=== PATIENT | female | born 1960 | race Caucasian/White ===

== ENCOUNTER 2020-07-31 14:21 | Outpatient (CLI) | payer BC, SELFPAY ==
[2020-07-31 14:37] LABS: Hematocrit 38.8 % (37.0-47.0); Mean Corpuscular HGB Conc 33.5 g/dl (32-36); Mean Corpuscular Hemoglobin 30.3 pg (26-34); Mean Corpuscular Volume 90.4 fl (80-100); Mean Platelet Volume 9.5 fl (7.4-10.4); Platelet Count Result 249 k/mm3 (150-375); Red Blood Count 4.29 M/mm3 (4.2-5.4); Red Cell Distribution Width 12.6 % (11.5-14.5); White Blood Count 5.1 K/mm3 (4.5-10.0)
[2020-07-31 14:50] LABS: Anion Gap 6 mmol/L (8-16); Blood Urea Nitrogen 18 mg/dL (7-17); Calcium 9.1 mg/dL (8.4-10.2); Carbon Dioxide 30 mmol/L (22-30); Chloride 104 mmol/L (98-107); Cholesterol 203 mg/dL (0-200); Estimated Glomerular Filt Rate > 60; Glucose 70 mg/dL (65-105); HDL Direct 58 mg/dL; Sodium 140 mmol/L (137-145); Triglycerides 133 mg/dL (<150)
[2020-07-31 15:01] LABS: LDL Cholesterol Direct 116 mg/dL
== END 2020-07-31 14:22 | disposition home or self-care (01) ==
PROVIDERS: PCP Family Medicine; Visit Provider Nurse Practitioner Family
DX: R42 Dizziness and giddiness (principal); R01.1 Cardiac murmur, unspecified
CPT/HCPCS: 36415; 80048; 80061; 84443; 85027

== ENCOUNTER 2020-08-07 09:09 | Outpatient (CLI) | payer BC, SELFPAY ==
--- NOTE | ~2020-08-07 | US_ITS ---
EXAMINATION: US carotid duplex BI DATE: 08/07/2020 09:50 INDICATION: Dizziness and giddiness. TECHNIQUE: Grayscale, color Doppler, and pulsed Doppler images of the cervical carotid arteries were obtained. The degree of vessel stenosis is placed in one of the following categories: normal, <50%, 5 0-69%, >=70% but less than near-occlusion, near-occlusion, or total occlusion. Note that percent sten osis relative to normal distal artery lumen diameter is indirectly measured from velocity measurement s as described by Honorio, et al. Radiology 2003; 229:340-346. COMPARISON: Ultrasound 09/18/2011 FINDINGS: RIGHT: The right common carotid artery (CCA) peak systolic velocity (PSV) is 77 cm/s. The right internal car otid artery (ICA) PSV is 96 cm/s. The right ICA end-diastolic velocity (EDV) is 24 cm/s. The right IC A/CCA PSV ratio is 1.2. Grayscale and color Doppler images yield an estimate of <50% diameter reducti on from plaque in the ICA. There is antegrade flow in the right vertebral artery. LEFT: The left CCA PSV is 91 cm/s. The left ICA PSV is 85 cm/s. The left ICA EDV is 21 cm/s. The left ICA/C CA PSV ratio is 0.9. Grayscale and color Doppler images yield an estimate of <50% diameter reduction from plaque in the ICA. There is antegrade flow in the left vertebral artery. IMPRESSION: 1. <50% stenosis in the right internal carotid artery. 2. <50% stenosis in the left internal carotid artery. Reviewed, dictated and finalized at location A. MEDIC SUPERVISOR
== END 2020-08-07 09:10 | disposition home or self-care (01) ==
PROVIDERS: PCP Family Medicine; Visit Provider Nurse Practitioner Family
DX: R42 Dizziness and giddiness (principal); R01.1 Cardiac murmur, unspecified; I65.23 Occlusion and stenosis of bilateral carotid arteries
CPT/HCPCS: 93880

== ENCOUNTER 2020-08-21 17:50 | Outpatient (CLI) | payer BC, SELFPAY | END 2020-08-21 17:51 | disposition home or self-care (01) | LOC: ANHCOVIDVC 17:50 | PROVIDERS: PCP Family Medicine | DX: Z23 Encounter for immunization (principal) | CPT/HCPCS: 0001A; 91300 ==

== ENCOUNTER 2020-09-11 17:46 | Outpatient (CLI) | payer BC, SELFPAY | END 2020-09-11 17:47 | disposition home or self-care (01) | LOC: ANHCOVIDVC 17:46 | PROVIDERS: PCP Family Medicine | DX: Z23 Encounter for immunization (principal) | CPT/HCPCS: 0002A; 91300 ==

== ENCOUNTER 2023-02-19 15:33 | Emergency (ER) | payer BC, SELFPAY ==
--- NOTE | ~2023-02-19 | CT_ITS ---
EXAMINATION: CT abdomen pelvis w con INDICATION: Epigastric abdominal pain TECHNIQUE: Computed tomographic images of the abdomen and pelvis were obtained after the administrati on of 100 cc of Omnipaque 350 intravenous contrast. The dose-length product (DLP) was 288.90 mGy-cm. Automated exposure control and iterative reconstruction technique were employed. COMPARISON: 10/10/2011 FINDINGS: There are innumerable nodules of the visualized lung bases which measure up to 9 mm in the right lower lobe. The heart size is normal. The liver, gallbladder, and adrenal glands are normal. Th ere are multiple hypoattenuating masses of the spleen which measure up to 1.3 cm. There is a question able hypoattenuating mass in the tail of the pancreas. There is mild diffuse wall thickening of the s tomach, worst in the gastric antrum. The right kidney is unremarkable there are peripelvic cysts vers us mild hydronephrosis of the left kidney. There is 1.6 cm rim calcified aneurysm of the splenic nehal ry. No free intraperitoneal gas or evidence of bowel obstruction. The appendix is normal. IMPRESSION: 1. Findings consistent with gastritis. 2. Innumerable nodules of the visualized lung bases which could reflect infection/inflammation howeve r no concerning for metastatic disease. Follow-up CT in three months is recommended. 3. Possible mass in the tail of the pancreas. Follow-up nonemergent MRI without and with contrast is recommended. 4. Multiple hypoattenuating splenic lesions, indeterminate. These can be simultaneously evaluated by MRI. Reviewed, dictated and finalized at location F. IMPRESSION: 1. Findings consistent with gastritis. 2. Innumerable nodules of the visualized lung bases which could reflect infecti on/inflammation however no concerning for metastatic disease. Follow-up CT in t hree months is recommended. 3. Possible mass in the tail of the pancreas. Follow-up nonemergent MRI without and with contrast is recommended. 4. Multiple hypoattenuating splenic lesions, indeterminate. These can be simult aneously evaluated by MRI.
--- NOTE | ~2023-02-19 | XR_ITS ---
EXAMINATION: XR chest 2V DATE: 02/19/2023 17:51 INDICATION: Epigastric abdominal pain TECHNIQUE: PA and lateral views of the chest are obtained. COMPARISON: 10/10/2011 FINDINGS: There are subtle bilateral pulmonary nodules which measure up to 9 mm. No pleural effusion or pneumothorax. The cardiomediastinal silhouette is normal. There is moderate thoracic spondylosis. IMPRESSION: 1. Subtle pulmonary nodules which could be infectious/inflammatory versus metastases. Reviewed, dictated and finalized at location F. IMPRESSION: 1. Subtle pulmonary nodules which could be infectious/inflammatory versus metas tases.
[2023-02-19 15:55] VITALS: BP 156/76; PULSE 76; RESP 16; TEMP 37.1; O2SAT 99
[2023-02-19 17:03] LABS: Basophils Percent Auto 0.2 % (0.2-1.2); Eosinophils Absolute Auto 0.1 K/mm3 (0-0.3); Eosinophils Percent Auto 1.5 % (0-4.4); Hematocrit 38.8 % (37.0-47.0); Hemoglobin 12.9 g/dL (12.0-15.0); Immature Granulocyte Absolute 0.01 K/mm3 (0.00-0.031); Immature Granulocyte Percent A 0.2 % (0-0.5); Lymphocytes Absolute Auto 1.75 K/mm3 (0.9-3.2); Lymphocytes Percent Auto 36.8 % (18.3-44.2); Mean Corpuscular HGB Conc 33.2 g/dl (32-36); Mean Corpuscular Hemoglobin 29.9 pg (26-34); Mean Platelet Volume 9.9 fl (7.4-10.4); Monocytes Absolute Auto 0.4 K/mm3 (0.1-0.6); Monocytes Percent Auto 7.6 % (2.6-8.5); Neutrophils Absolute Auto 2.6 K/mm3 (1.3-6.7); Neutrophils Percent Auto 53.7 % (45.5-73.1); Platelet Count Result 151 k/mm3 (150-375); Red Blood Count 4.31 M/mm3 (4.2-5.4); Red Cell Distribution Width 12.4 % (11.5-14.5); White Blood Count 4.8 K/mm3 (4.5-10.0)
[2023-02-19 17:07] LABS: Appearance Urine Clear (Clear); Bacteria Urine None Seen /hpf; Bilirubin Urine Negative (Negative); Blood Urine Negative (Negative); Color Urine Yellow (Yellow); Glucose Urine UA Negative (Negative); Ketones Urine Negative (Negative); Leukocyte Esterase Ur Trace LEU/UL (Negative); Nitrate Urine Negative (Negative); Non Pathogenic Casts 0-2; Protein Urine Negative (Negative); RBC Urine 0-2 /hpf (0-2); Squamous Epithelial Cell Urine None seen /hpf (Few); WBC Urine 0-5 /hpf; pH Urine 7.5 (5.0-9.0)
[2023-02-19 17:08] LABS: Add Urine Microscopic? YES
--- NOTE | 2023-02-19 17:15 | ECG_ITS ---
Measurements Intervals [place] Rate: 62 P: 74 IA: 150 QRS: 42 QRSD: 97 T: 38 QT: 421 QTc: 430 Interpretive Statements SINUS RHYTHM NORMAL ECG NO PREVIOUS ECG AVAILABLE FOR COMPARISON Electronically Signed On 02-19-2023 19:43:06 CDT by Matt Saba D.O.
[2023-02-19 17:16] LABS: Alanine Aminotransferase 27 U/L (6-35); Albumin Level 4.3 g/dL (3.5-5.1); Alkaline Phosphatase 56 U/L (38-126); Anion Gap 5 mmol/L (8-16); Aspartate Amino Transferase 28 U/L (14-36); Bilirubin,Total 0.5 mg/dL (0.2-1.3); Blood Urea Nitrogen 13 mg/dL (7-17); Calcium 9.1 mg/dL (8.4-10.2); Carbon Dioxide 31 mmol/L (22-30); Chloride 103 mmol/L (98-107); Estimated CRCL calculation 82 ml/min; Estimated Glomerular Filt Rate > 60; Glucose 85 mg/dL (65-110); Lipase 85 U/L (23-300); Potassium 3.8 mmol/L (3.4-5.0); Sodium 139 mmol/L (137-145)
--- NOTE | 2023-02-19 17:16 | ED.ABDPAIN ---
HPI - Abdominal Pain General Chief Complaint: Abdominal Pain Stated Complaint: abdominal pain Time Seen by Provider: 02/19/23 17:01 History of Present Illness HPI narrative: 62-year-old female with a history of insulin-dependent diabetes, aortic valve stenosis, and hyperlipidemia reports for evaluation for epigastric abdominal pain for the past 1 to 2 weeks. Patient states the pain is a constant dull ache, but becomes worse when she wakes up in the morning and when she is hungry. She states the pain is improved after eating meals and then starts to hurt again later. She states that the pain gets worse, feels like someone is stabbing her in the epigastrium with a knife. She states she went to her primary care provider 2 days ago for evaluation of the pain. Her PCP ordered blood work and stated that it all looked fine . States she is scheduled in 5 days for an outpatient ultrasound of her gallbladder, as this was her PCPs concern. Her PCP also started her on 20 mg of omeprazole daily which the patient has been taking without improvement. The patient states she came to the ED today because the pain got worse. She states currently her pain is a 5/10. She denies chest pain or shortness of breath, cough or congestion, fever, nausea or vomiting, diarrhea, dysuria or hematuria, melena or hematochezia. Last bowel movement was today and normal. Only abdominal surgeries consist of C-sections approximately 30 years ago. States her blood sugars have been approximately 200s in the past 1 to 2 weeks and she has adjusted her sliding scale accordingly. Related Data Home Medications Medication Instructions Recorded Confirmed insulin glargine 100 unit/mL (3 21 unit subcut QAM 02/17/23 02/17/23 mL) subcutaneous pen (Lantus Solostar U-100 Insulin) insulin lispro 100 unit/mL 1 sliding scale dose subcut 02/17/23 02/17/23 subcutaneous pen USEASDIRECTD Allergies Allergy/AdvReac Type Severity Reaction Status Date / Time No Known Allergies Allergy Unknown Verified 02/17/23 12:52 Review of Systems Review of Systems: CONSTITUTIONAL: Denies fever, chills EYES: Denies visual changes, redness, or discharge. ENT: Denies rhinorrhea, congestion, sore throat, or otalgia. CARDIOVASCULAR: Denies chest pain, palpitations, or edema. RESPIRATORY: Denies cough or dyspnea. GASTROINTESTINAL: See HPI GENITOURINARY: Denies dysuria or hematuria. SKIN: Denies rash or itching. MUSCULOSKELETAL: Denies back pain, joint pain, or myalgia. NEUROLOGIC: Denies headache, numbness, dizziness, or weakness. PSYCHIATRIC: Denies anxiety or depression. [facility] Past Medical History Medical History BMI 22.0-22.9, adult Diabetic ketoacidosis without coma associated with type 1 diabetes mellitus Encounter for other screening for malignant neoplasm of breast Herpes zoster without complication Impacted cerumen of both ears Splenic artery aneurysm Toenail torn away Type 1 diabetes mellitus without complications Family History Family History Father Hypertension Family history of chronic obstructive pulmonary disease Family history of congestive heart failure Mother Hypertension Family history of diabetes mellitus in first degree relative Sibling Hypertension Other Diabetes mellitus Social History Social History Smoking status: Never smoker Second hand tobacco smoke exposure: Yes Alcohol intake: current Substance use: never Substance use type: does not use Living arrangements: alone Occupation/Education: occupation 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 Patient resting comfortably in exam bed. She is pleasant and c
[2023-02-19] MEDS: BELLADONNA ALK/PHENOB ELIX 10 ML, MAG HYDROX/ALUMINUM HYD/SIMETH 30 ML, LIDOCAINE HCL 2... PO (17:27)
[2023-02-19] MEDS: FAMOTIDINE 20 MG/2 ML VIAL IV PUSH (17:27)
[2023-02-19] MEDS: SODIUM CHLORIDE 0.9% IV 1,000 ML 999 ML IV CONT (17:27)
[2023-02-19 17:32] VITALS: BP 169/86; PULSE 69; RESP 18; O2SAT 100
[2023-02-19 17:43] LABS: Troponin I < 0.012 ng/mL (0.000-0.034)
[2023-02-19 19:05] VITALS: BP 159/89; PULSE 89; RESP 15; O2SAT 100
== END 2023-02-19 19:36 | disposition home or self-care (01) ==
PROVIDERS: Emergency Medicine; Emergency Provider Physician Assistant; PCP Family Medicine
DX: K29.70 Gastritis, unspecified, without bleeding (principal); E78.5 Hyperlipidemia, unspecified; E10.9 Type 1 diabetes mellitus without complications; I35.0 Nonrheumatic aortic (valve) stenosis; Z77.22 Contact with and (suspected) exposure to environmental tobacco smoke (acute) (chronic); Z79.4 Long term (current) use of insulin; R91.8 Other nonspecific abnormal finding of lung field; D73.89 Other diseases of spleen; R93.3 Abnormal findings on diagnostic imaging of other parts of digestive tract
CPT/HCPCS: 36415; 71046; 74177; 80053; 81001; 83690; 84484; 85025; 93005; 96361; 96374; 99284; A9270; J7030; Q9967

== ENCOUNTER 2023-02-24 07:40 | Outpatient (CLI) | payer BC, SELFPAY ==
--- NOTE | ~2023-02-24 | US_ITS ---
EXAMINATION: US abdomen complete DATE: 02/24/2023 08:19 INDICATION: Epigastric pain TECHNIQUE: Multiple grayscale and Doppler ultrasound images of the abdomen were obtained. COMPARISON: CT, 02/19/2023 FINDINGS: The head and body of the pancreas are normal. The pancreatic tail is obscured by bowel gas. The liver is normal with normal echogenicity and echotexture. No surface nodularity. Normal hepatope logan flow in the main portal vein. The gallbladder is normal with no abnormal wall thickening, pericho lecystic fluid or stones. The normal common bile duct measures 5 mm. There was no sonographic Vazquez sign. The visualized portions of the aorta and inferior vena cava are normal. The spleen measures 9.5 cm. Splenic lesions identified on CT are not well demonstrated by ultrasound. The right kidney measures 11.5 x 4.9 x 4.2 cm. The left kidney measures 9.2 x 5.7 x 5.6 cm. The kidn eys demonstrate normal parenchymal echogenicity. There is mild left hydronephrosis. IMPRESSION: 1. No sonographic correlate for the patient's symptoms. 2. Splenic lesions and suspected pancreatic lesion seen on CT not well demonstrated. 3. Mild left hydronephrosis. Reviewed, dictated and finalized at location B. IMPRESSION: 1. No sonographic correlate for the patient's symptoms. 2. Splenic lesions and suspected pancreatic lesion seen on CT not well demonstr ated. 3. Mild left hydronephrosis.
== END 2023-02-24 07:41 ==
LOC: GOSHIMG 07:41
PROVIDERS: PCP Family Medicine; Visit Provider Physician Assistant Medical
DX: R10.13 Epigastric pain (principal); N13.30 Unspecified hydronephrosis
CPT/HCPCS: 76700

== ENCOUNTER 2023-03-17 15:32 | Outpatient (CLI) | payer BC, SELFPAY ==
--- NOTE | ~2023-03-17 | MR_ITS ---
EXAMINATION: MR abdomen wo/w con DATE: 03/17/2023 16:55 INDICATION: Other diseases of spleen. Upper abdominal pain. TECHNIQUE: Magnetic resonance imaging (MRI) of the abdomen was performed without and with 12 mL Multi Celeste intravenous contrast. COMPARISON: CT abdomen and pelvis 02/19/2023, chest CT 10/10/11 FINDINGS: Again seen are numerous nodules in the lungs in a random distribution measuring up to 11 mm in right lower lobe. No pleural effusion. There are 2 lesions in the liver measuring up to 6 mm visualized on diffusion-weighted images. The gallbladder is normal. There are multiple lesions in the spleen measur ing up to 11 mm that demonstrate increased T2-weighted signal intensity. There is a 2.5 cm hypoenhanc ing mass in the tail of the pancreas. 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 Gastric varices are n oted. The adrenal glands and right kidney are normal. There is mild left hydronephrosis. There is a 1 5 mm saccular aneurysm of splenic artery. IMPRESSION: 1. 2.5 cm mass in the tail of the pancreas, consistent with primary adenocarcinoma. Chronic pancreati tis could have the same appearance, but is less likely. 2. Pulmonary nodules measuring up to 11 mm, consistent with metastatic disease. Consider chest CT. 3. Two small liver lesions, which may be benign or malignant. 4. Splenic lesions, which may be granulomatous disease, infarcts, or metastatic disease. 5. Mild left hydronephrosis. Reviewed, dictated and finalized at location A. IMPRESSION: 1. 2.5 cm mass in the tail of the pancreas, consistent with primary adenocarcin bakari. Chronic pancreatitis could have the same appearance, but is less likely. 2. Pulmonary nodules measuring up to 11 mm, consistent with metastatic disease. Consider chest CT. 3. Two small liver lesions, which may be benign or malignant. 4. Splenic lesions, which may be granulomatous disease, infarcts, or metastatic disease. 5. Mild left hydronephrosis.
== END 2023-03-17 15:33 | disposition home or self-care (01) ==
PROVIDERS: PCP Family Medicine; Visit Provider Physician Assistant Medical
DX: D73.89 Other diseases of spleen (principal); K86.89 Other specified diseases of pancreas; N13.30 Unspecified hydronephrosis; R91.8 Other nonspecific abnormal finding of lung field
CPT/HCPCS: 74183; A9577

== ENCOUNTER 2023-03-19 08:40 | Outpatient (CLI) | payer BC, SELFPAY ==
--- NOTE | ~2023-03-19 | CT_ITS ---
EXAMINATION:CT diagnostic chest w con DATE: 03/19/2023 09:23 INDICATION: Lung nodule. Chest pain. TECHNIQUE: Computed tomography (CT) of the chest was performed with 75 mL Omnipaque 350 intravenous c ontrast. Automated exposure control and iterative reconstruction technique were employed. The dose-le ngth product (DLP) was 135.47 mGy-cm. COMPARISON: Chest CT 10/10/2011, CT abdomen and pelvis 02/19/2023. FINDINGS: There are greater than 50 scattered nodules in the lungs in a random distribution. Some of the nodules are cavitary. The largest nodule measures 11 mm in right lower lobe. No pleural effusion. The heart size is normal. There is a trace pericardial effusion. There are no pathologically enlarge d lymph nodes. There is a 1.6 cm saccular aneurysm of splenic artery. There are multiple hypodense sp lenic lesions measuring up to 12 mm. There is a 2.5 cm hypodense mass in the tail of the pancreas. 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 There is severe thoracic spondylosis. There is a hemangioma in T10 vertebral body. IMPRESSION: 1. Greater than 50 scattered pulmonary nodules measuring up to 11 mm, stable in size from 02/19/2023, consistent with metastatic disease. CT-guided biopsy of a lung nodule is recommended. 2. 2.5 cm hypodense mass in the tail of the pancreas, consistent with primary adenocarcinoma. 3. Stable splenic lesions, which may be infarcts or less likely granulomatous disease or metastatic d isease. Reviewed, dictated and finalized at location A. IMPRESSION: 1. Greater than 50 scattered pulmonary nodules measuring up to 11 mm, stable in size from 02/19/2023, consistent with metastatic disease. CT-guided biopsy of a lung nodule is recommended. 2. 2.5 cm hypodense mass in the tail of the pancreas, consistent with primary a denocarcinoma. 3. Stable splenic lesions, which may be infarcts or less likely granulomatous d isease or metastatic disease.
== END 2023-03-19 08:41 | disposition home or self-care (01) ==
PROVIDERS: PCP Family Medicine; Visit Provider Physician Assistant Medical
DX: R91.8 Other nonspecific abnormal finding of lung field (principal); K86.89 Other specified diseases of pancreas
CPT/HCPCS: 71260; Q9967

== ENCOUNTER 2023-03-26 05:16 | Outpatient (CLI) | payer BC, SELFPAY ==
[2023-03-19 13:03] VITALS: BMI 24.0
--- NOTE | 2023-03-19 13:04 | PC.NURSE ---
Pre Radiology instructions Report to the outpatient [facility] on date 03/26/23 at time 0900 for procedure Time: 1100. YOU MAY BE MONITORED AT HOSPITAL FOR UP TO 4 HOURS AFTER YOUR PROCEDURE. A visitor will be allowed to accompany the patient into the hospital. You and your visitor will be asked to self-screen and do not enter if you have any COVID symptoms. A mask is OPTIONAL within the hospital. Patients are to have no food or drink 6 hours prior to procedure time Driving will be restricted after the procedure, you must have a person to drive you home. Labs will be drawn in preop area and once reviewed, you will be taken to radiology area for procedure. When the procedure is completed, you will be taken to outpatient where you will be monitored for several hours. You may have one visitor in this area. Other than holding anti-coagulants, patient may take other medication(s) as scheduled. Prior to your appointment date patients are instructed to hold anti-coagulants after discussing with ordering provider to stop. If unable to discontinue anti-coagulants please notify radiologist. ? No aspirin or warfarin (Coumadin) for 7 days prior to the procedure. ? No clopidogrel (Plavix), ticagrelor (Brilinta), prasugrel (Effient) or dabigatran (Pradaxa) for 5 days prior to the procedure. ? No rivaroxaban (Xarelto), apixaban (Eliquis), dipyridamole (Aggrenox or Persantine) or cilostazol (Pletal) for 2 days prior to the procedure. Medications to discontinue per physician: ASPIRIN Date to take last dose: 03/19/23 Please leave all valuables, including medications, at home the day of procedure. The hospital will not accept responsibility for valuables. Wear comfortable, loose fitting clothing.? Follow any additional instructions given to you from ordering provider. Telephone instructions given to JORDYN DREW and asked if any additional questions and then verbalized understanding. Patient advised to call scheduling provider office or registration scheduling [phone] if any additional questions.
[2023-03-26] VITALS (10 sets, daily range): BP systolic 148–172; BP diastolic 65–82; PULSE 62–80; RESP 14–18; TEMP 36.3; O2SAT 99–100
--- NOTE | ~2023-03-26 | CT_ITS ---
EXAMINATION: CT biopsy lung w/imaging DATE: 03/26/2023 12:34 INDICATION: Multiple bilateral pulmonary nodules suspicious for metastatic disease. TECHNIQUE: The procedure including the risks and benefits was discussed with the patient. Risks discu ssed included infection, approximately 1/20 risk of symptomatic hemorrhage beyond mild hemoptysis, ap proximately 1/3 risk of pneumothorax, and approximately 1/10 risk of pneumothorax severe enough to wa rrant chest tube placement. The patient understood the risks and agreed to proceed. The patient was p laced prone. The skin overlying the posterior inferior right hemithorax was prepped and draped in st erile fashion. Anesthetic was administered with 1% lidocaine subcutaneously. A 19 gauge outer needl e was advanced under CT guidance to the lesion of interest. A 20 gauge core biopsy needle was then us ed to obtain 6 core biopsy specimens. The needle was removed and the entry site was cleaned and dress ed. There were no immediate complications. The dose-length product was 240.24 mGy-cm. FINDINGS: CT images demonstrate the outer needle tip adjacent to a 12 x 10 mm centrally cavitary nodu le at the basilar right lower lobe. There are multiple additional small solid and central cavitary no dules throughout the visualized bilateral mid to lower lungs. IMPRESSION: 1. Successful CT-guided biopsy of one of multiple scattered bilateral cavitary pulmonary nodules loca darrel in the right lower lobe. Reviewed, dictated and finalized at location A. IMPRESSION: 1. Successful CT-guided biopsy of one of multiple scattered bilateral cavitary pulmonary nodules located in the right lower lobe.
--- NOTE | ~2023-03-26 | XR_ITS ---
EXAMINATION: XR chest 1V portable DATE: 03/26/2023 15:38 INDICATION: Right lung nodule status post percutaneous biopsy. TECHNIQUE: A single frontal view of the chest was obtained. COMPARISON: Chest single view 03/26/2023 at 1:24 PM FINDINGS: There are scattered pulmonary nodules in the lungs. No pleural effusion or pneumothorax. Th e heart size is normal. IMPRESSION: 1. Pulmonary nodules, consistent with metastatic disease. Reviewed, dictated and finalized at location E.
--- NOTE | ~2023-03-26 | XR_ITS ---
EXAMINATION: XR chest 1V DATE: 03/26/2023 12:32 INDICATION: Status post percutaneous right lower lobe lung biopsy TECHNIQUE: frontal view of the chest was obtained. COMPARISON: Chest radiograph dated 02/19/2023 FINDINGS: Very small right apical pneumothorax. Again seen are a few subtle small nodular opacities in the bila teral lower lung suspicious for metastatic disease. No pleural effusion or left-sided pneumothorax. T he cardiomediastinal silhouette is normal. 1.8 cm rim calcified splenic artery aneurysm at the left u pper quadrant. IMPRESSION: 1. Very small right pneumothorax post percutaneous right lung biopsy. 2. Multiple small pulmonary nodules in the bilateral lower lungs suspicious for metastatic disease. Reviewed, dictated and finalized at location A.
--- NOTE | ~2023-03-26 | XR_ITS ---
Portable chest x-ray Comparison: 03/26/2023 at 12:30 PM Clinical History: Status post biopsy Findings: There are probable small subtle pulmonary nodules, consistent with metastatic disease. No pneumothorax. Cardiomediastinal silhouette is stable. Bones and soft tissues are unremarkable. Impression: Probable small subtle pulmonary nodules, consistent with metastatic disease. Please see recent CT tonya ed 03/19/2023 for further details. No pneumothorax. Reviewed, dictated and finalized at location M. Impression: Probable small subtle pulmonary nodules, consistent with metastatic disease. Pl ease see recent CT dated 03/19/2023 for further details. No pneumothorax.
[2023-03-26 10:04] LABS: Mean Platelet Volume 10.1 fl (7.4-10.4); Platelet Count Result 184 k/mm3 (150-375)
[2023-03-26 10:14] LABS: Prothrombin Time 13.5 Seconds (11.1-14.7)
--- NOTE | 2023-03-26 16:00 | SUR.PHASEII ---
PER DR EVANS PATIENT IS GOOD TO DISCHARGE
== END 2023-03-26 16:27 | disposition home or self-care (01) ==
PROVIDERS: PCP Family Medicine; Referring Provider Physician Assistant Medical; Visit Provider Radiology Diagnostic Radiology
PROC: BB24ZZZ Computerized Tomography (CT Scan) of Bilateral Lungs (ICD-10-PCS; CPT 32408; principal; 2023-03-26 11:00)
DX: R91.8 Other nonspecific abnormal finding of lung field (principal)
CPT/HCPCS: 32408; 36415; 71045; 85049; 85610; 88305; 88342

== ENCOUNTER 2023-04-08 15:47 | Outpatient (CLI) | payer BC, SELFPAY ==
[2023-04-08 15:58] LABS: Basophils Percent Auto 0.5 % (0.2-1.2); Eosinophils Absolute Auto 0.2 K/mm3 (0-0.3); Eosinophils Percent Auto 3.5 % (0-4.4); Hematocrit 36.3 % (37.0-47.0); Hemoglobin 12.3 g/dL (12.0-15.0); Immature Granulocyte Absolute 0.02 K/mm3 (0.00-0.031); Immature Granulocyte Percent A 0.3 % (0-0.5); Lymphocytes Absolute Auto 1.07 K/mm3 (0.9-3.2); Lymphocytes Percent Auto 18.5 % (18.3-44.2); Mean Corpuscular HGB Conc 33.9 g/dl (32-36); Mean Corpuscular Hemoglobin 29.8 pg (26-34); Mean Corpuscular Volume 87.9 fl (80-100); Mean Platelet Volume 9.3 fl (7.4-10.4); Monocytes Absolute Auto 0.5 K/mm3 (0.1-0.6); Monocytes Percent Auto 7.9 % (2.6-8.5); Neutrophils Percent Auto 69.3 % (45.5-73.1); Platelet Count Result 193 k/mm3 (150-375); Red Blood Count 4.13 M/mm3 (4.2-5.4); Red Cell Distribution Width 12.5 % (11.5-14.5); White Blood Count 5.8 K/mm3 (4.5-10.0)
[2023-04-08 16:34] LABS: Alanine Aminotransferase 66 U/L (6-35); Albumin Level 4.1 g/dL (3.5-5.1); Alkaline Phosphatase 57 U/L (38-126); Anion Gap 5 mmol/L (8-16); Aspartate Amino Transferase 52 U/L (14-36); Bilirubin,Total 0.5 mg/dL (0.2-1.3); Blood Urea Nitrogen 14 mg/dL (7-17); Calcium 9.1 mg/dL (8.4-10.2); Carbon Dioxide 31 mmol/L (22-30); Chloride 98 mmol/L (98-107); Estimated Glomerular Filt Rate > 60; Glucose 122 mg/dL (65-110); Potassium 3.7 mmol/L (3.4-5.0); Sodium 134 mmol/L (137-145)
[2023-04-11 06:03] LABS: CA 19-9 143 U/mL (<34)
== END 2023-04-08 15:48 | disposition home or self-care (01) ==
LOC: ANHLAB 15:49
PROVIDERS: PCP Family Medicine; Visit Provider Internal Medicine Hematology & Oncology
DX: C25.9 Malignant neoplasm of pancreas, unspecified (principal)
CPT/HCPCS: 36415; 80053; 85025; 86301

== ENCOUNTER 2023-04-14 01:35 | Day surgery (SDC) | payer BC, SELFPAY ==
[2023-04-11 14:55] VITALS: BMI 21.9
--- NOTE | 2023-04-11 15:01 | PC.NURSE ---
Report to the Outpatient Waiting Room, entrance under the green pavilion located off [facility], at time 1030 on date 04/14/23. Planned Procedure Time: 1230. Time changes happen often and if your time is changed the preop area will call you the afternoon before. - You and your visitor will be asked to self-screen and do not enter if you have any COVID symptoms. - A mask is optional within the hospital at this time. Patients may have clear liquids (water, carbonated beverages, clear teas, apple juice) until 3 hours prior to surgery with a maximum of 20 ounces. - No food from midnight until time of surgery Take the following medications with a SIP of water the morning of surgery: HYDROXYZINE/TRAMADOL IF NEEDED DO NOT STOP ANY OF YOUR OTHER PRESCRIPTION MEDICATIONS PRIOR TO SURGERY ?EXCEPT THE FOLLOWING Medications to discontinue per physician: N/A Date to take last dose: N/A Please no make-up, nail czech, hairspray, perfume, deodorant, or body powder the day of surgery. No jewelry (including any body piercings) or valuables the day of surgery, leave them at home. Please take a shower or bath the night before, or the morning of, surgery with an antibacterial soap. Wear comfortable, loose fitting clothing. - Jewelry must be removed prior to entering the operating room. Rings and piercings that are not removed may be cut off. - The hospital will not accept responsibility for valuables. - Please leave all valuables, including medications, at home the day of surgery. If you are going home after surgery, a licensed route sales delivery driver must drive you home. - NO public transportation without another adult if you receive anesthesia. - We recommend that an adult stay with you for 24 hours following discharge. - We also recommend that you do not drive, make important decision, drink alcoholic beverages, or take any drugs that were not prescribed by your health care provider for at least 24 hours after your discharge time. Follow any additional instructions given to you from your surgeon. If you or anyone in your household have experienced Covid symptoms in the past week, please notify your surgeon or the nurse liaison at the phone number below for possible testing. Telephone instructions given to PT - EDD DREW and asked if any additional questions and then verbalized understanding. Patient advised to call surgeon office or pre surgery nurse liaison [phone] if any additional questions.
--- NOTE | ~2023-04-14 | XR_ITS ---
EXAMINATION: XR chest port-a-cath/central INDICATION: Port-A-Cath insertion TECHNIQUE: Portable AP chest at 1440 hours COMPARISON: 03/26/2023 FINDINGS: A right subclavian Port-A-Cath ends with this tip in the distal superior vena cava. There i s mild atelectasis of the lung bases. Small nodules are noted in the right lung base. The cardiomedia stinal silhouette is normal. No pleural effusion or pneumothorax. There is a rim calcified splenic ar yan. IMPRESSION: 1. Right subclavian Port-A-Cath insertion. No pneumothorax. 2. Small nodules of the right, consistent with metastatic disease. Reviewed, dictated and finalized at location B. CUTTER
--- NOTE | ~2023-04-14 | XR_ITS ---
EXAMINATION: XR fl guide central line place DATE: 04/14/2023 14:18 INDICATION: Port catheter placement TECHNIQUE: Single frontal view of the central chest was obtained during procedure performed by Dr. Rojelio ang. Radiologist was not present for the imaging or procedure. The amount of fluoroscopy time used dur ing this procedure was 0.3 minutes. COMPARISON: 03/26/2023 FINDINGS/IMPRESSION: Tip of a right-sided central venous catheter projects over the caudal superior vena cava near the sup erior cavoatrial junction. See procedure note for further detail. Reviewed, dictated and finalized at location A. INER FEEDER
[2023-04-14] MEDS: LACTATED RINGERS 1,000 ML 30 ML IV CONT ×2 (11:20→14:28)
[2023-04-14 11:42] VITALS: BP 115/64; PULSE 85; RESP 16; TEMP 36.4; O2SAT 99
[2023-04-14 11:42] LABS: Glucose Point of Care 173 mg/dl (65-105)
[2023-04-14 11:51] LABS: Partial Thromboplastin Time 27.7 SECONDS (22.3-36.8)
--- NOTE | 2023-04-14 12:59 | WPDANESEPPF ---
Anes - Initial Pre Proc Eval Procedure: Operation Date: 04/14/23 12:30 Proposed Procedures p Insertion Kayla Cath - Cresencio Barrett MD Date/Time: 04/14/23 12:59 Surgeon: Cresencio Barrett MD Pre Op Diagnosis: pancreatic CA Patient Data Age: 62 Gender: F Height: 1.63 m Weight: 56.2 kg Last Vital Signs Temp 36.4 C L 04/14/23 11:42 Pulse 85 04/14/23 11:42 Resp 16 04/14/23 11:42 BP 115/64 04/14/23 11:42 Pulse Ox 99 04/14/23 11:42 O2 Del Method Room Air 04/14/23 11:42 Allergies Allergy/AdvReac Type Severity Reaction Status Date / Time No Known Allergies Allergy Unknown Verified 04/14/23 10:41 Home Medications Medication Instructions Recorded Confirmed Type rosuvastatin 20 mg tablet See Rx Instructions .Route 01/27/23 04/14/23 Rx .COMPLEX #90 tabs insulin glargine 100 unit/mL (3 21 unit subcut QAM 02/17/23 04/14/23 History mL) subcutaneous pen (Lantus Solostar U-100 Insulin) insulin lispro 100 unit/mL 1 sliding scale dose subcut 02/17/23 04/14/23 History subcutaneous pen USEASDIRECTD aspirin 81 mg chewable tablet 81 mg PO DAILY 03/19/23 04/14/23 History hydroxyzine HCl 25 mg tablet 25 mg PO TID PRN anxiety #30 tabs 04/02/23 04/11/23 Rx tramadol 50 mg tablet 50 mg PO BID PRN pain #60 tabs 04/02/23 04/14/23 Rx ondansetron 8 mg disintegrating 8 mg translingual Q6H PRN Nausea 04/11/23 04/11/23 History tablet And Vomiting Laboratory Tests 04/14/23 04/14/23 11:16 11:39 APTT 27.7 SECONDS (22.3-36.8) POC Capillary Glucose 173 H mg/dl (65-105) Patient hx anesthesia problems: none Family hx anesthesia problems: none Results Review: All pre-operative results and documents have been reviewed as part of the pre-operative evaluation. [facility] Past Medical History Medical History BMI 22.0-22.9, adult Diabetic ketoacidosis without coma associated with type 1 diabetes mellitus Encounter for other screening for malignant neoplasm of breast Herpes zoster without complication Impacted cerumen of both ears Pancreatic cancer Splenic artery aneurysm Toenail torn away Type 1 diabetes mellitus without complications Family History Family History Father Hypertension Family history of chronic obstructive pulmonary disease Family history of congestive heart failure Mother Hypertension Family history of diabetes mellitus in first degree relative Sibling Hypertension Other Diabetes mellitus Social History Social History Smoking status: Never smoker Second hand tobacco smoke exposure: Yes Alcohol intake: never Substance use: never Substance use type: does not use Living arrangements: alone Occupation/Education: occupation 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 Informed Consent: The patient's anesthetic plan and its attendant risks and benefits were discussed with the patient/family/POA. Questions were solicited and answers provided to the satisfaction of the patient/family/POA.
--- NOTE | 2023-04-14 13:07 | PM.IMHP ---
H&P: HPI History of Present Illness Date/Time: 04/14/23 13:07 Chief Complaint: Need for henry catheter, new diagnosis of pancreatic cancer. Narrative: Patient is a 62-year-old female who unfortunately has been recently diagnosed with pancreatic cancer. She is to undergo chemotherapy treatments. She presents for placement of henry catheter to administer the chemotherapy treatments. She has never had a henry catheter in the past. She has never had treatment for cancer in the past. She has never broken collarbone. Review of Systems Review of Systems: The remainder of the review of systems to include constitutional, HEENT, cardiovascular, respiratory, GI, , integumentary, musculoskeletal, endocrine, immunologic, hematologic, psychiatric, and neurologic are all negative except for which is mentioned above in the HPI. [facility] Past Medical History Medical History BMI 22.0-22.9, adult Diabetic ketoacidosis without coma associated with type 1 diabetes mellitus Encounter for other screening for malignant neoplasm of breast Herpes zoster without complication Impacted cerumen of both ears Pancreatic cancer Splenic artery aneurysm Toenail torn away Type 1 diabetes mellitus without complications Family History Family History Father Hypertension Family history of chronic obstructive pulmonary disease Family history of congestive heart failure Mother Hypertension Family history of diabetes mellitus in first degree relative Sibling Hypertension Other Diabetes mellitus Social History Social History Smoking status: Never smoker Second hand tobacco smoke exposure: Yes Alcohol intake: never Substance use: never Substance use type: does not use Living arrangements: alone Occupation/Education: occupation 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 Gender identity (if verbalized by the patient): Female Spiritual care concerns: No Meds Home Medications and Allergies Home Medications Medication Instructions Recorded Confirmed Type rosuvastatin 20 mg tablet See Rx Instructions .Route 01/27/23 04/14/23 Rx .COMPLEX #90 tabs insulin glargine 100 unit/mL (3 21 unit subcut QAM 02/17/23 04/14/23 History mL) subcutaneous pen (Lantus Solostar U-100 Insulin) insulin lispro 100 unit/mL 1 sliding scale dose subcut 02/17/23 04/14/23 History subcutaneous pen USEASDIRECTD aspirin 81 mg chewable tablet 81 mg PO DAILY 03/19/23 04/14/23 History hydroxyzine HCl 25 mg tablet 25 mg PO TID PRN anxiety #30 tabs 04/02/23 04/11/23 Rx tramadol 50 mg tablet 50 mg PO BID PRN pain #60 tabs 04/02/23 04/14/23 Rx ondansetron 8 mg disintegrating 8 mg translingual Q6H PRN Nausea 04/11/23 04/11/23 History tablet And Vomiting Allergies Allergy/AdvReac Type Severity Reaction Status Date / Time No Known Allergies Allergy Unknown Verified 04/14/23 10:41 Vital Signs Vital Signs - 24 hr 04/14/23 11:42 Temperature 36.4 C L Pulse Rate 85 Respiratory Rate 16 Blood Pressure 115/64 Pulse Oximetry 99 Oxygen Delivery Room Air Exam Const: General: comfortable and no acute distress HENMT: Ears: TM's normal bilaterally Face/Nose/Sinus: Normal nares present Mouth: Yes moist mucous membranes Eyes: General: appearance normal, both eyes and all related structures Sclera: sclerae normal Pupils: Equal, round and reactive pupils present EOM: EOMs intact bilaterally Neck: Neck: supple and no JVD Chest: Other: Clavicle symmetric no rashes on chest wall. Resp: Effort & Inspection: normal respiratory effort Auscultation: clear to auscultation bilaterally Cardio: Rate: regular rate Rhythm: regular rhythm GI: GI Palp: Yes Soft to palpation, No Firmness to palpation present (GI), No Tenderness to palpation present
--- NOTE | 2023-04-14 13:11 | WPDHPUPDATE1 ---
History and Physical Update Update Date/Time: 04/14/23 13:11 History and Physical has been reviewed, including an updated exam of the patient. There are NO changes in the patient's condition. Risks, benefits, and alternatives have been discussed and questions answered. Patient agrees to proceed with procedure.
[2023-04-14] MEDS: ceFAZolin 2 GM/D5W 50 ML 2 GM/50 ML BAG IVPB (13:17)
[2023-04-14] MEDS: HEPARIN SODIUM 1,000 UNITS/ML VIAL 1000 UNITS IV PUSH (13:55)
[2023-04-14] MEDS: LIDO 1%/EPINEPHRINE 1:100,000 50 ML VIAL 30 ML INFILTRATE (13:55)
[2023-04-14] MEDS: HEPARIN SODIUM 5,000 UNITS/ML VIAL 5000 UNITS IRRIGATION (13:55)
[2023-04-14 14:28] VITALS: BP 150/58; PULSE 80; RESP 16; O2SAT 99
--- NOTE | 2023-04-14 14:28 | W.PM.PROC2 ---
Procedure Note - Detailed Date of Procedure 04/14/23 Pre-op Diagnosis Pancreatic adenocarcinoma. Post-op Diagnosis Same Procedure Performed Placement of right subclavian vein single-lumen port a catheter with intraoperative fluoroscopy Surgeon Cresencio Barrett MD Autism Tutor Betsy Agrawal DRUPAL DEVELOPER Anesthesia MAC Indications Patient is a 62-year-old female who unfortunately has been recently diagnosed with pancreatic cancer. She is to undergo chemotherapy treatments and presents now for placement of henry catheter to start chemotherapy treatments. Findings None significant Description of Procedure After informed consent was obtained patient brought to the operating room placed supine position and then IV sedation was administered by anesthesia. The bilateral upper anterior neck and chest was then prepped and draped usual sterile fashion. A time-out was then performed correctly identifying the patient as well as procedure to be performed. She was given perioperative IV antibiotics. I 1st approach trying to place the henry catheter into the right internal jugular vein. 1% lidocaine mixed with 0.5% Marcaine was injected between the 2 heads of the right sternocleidomastoid muscle. Three attempts were then made to cannulate the right internal jugular vein with an 18gauge spinal needle. All 3 attempts were unsuccessful. I then turned my attention to trying to cannulate the right subclavian vein. Again the same local anesthetic mixture was injected below the medial 3rd of the right clavicle. A transverse incision was then made the scalpel the subcutaneous tissue was divided with electrocautery. I then created a subcutaneous port pocket utilizing combination of blunt finger electrocautery dissection just below the incision. I then used the same 18gauge spinal needle to percutaneously cannulate the right subclavian vein. I was finally able to cannulate the vein on the 4th attempt. There was prompt backflow of dark venous appearing blood. A guidewire was then advanced through the needle into the right subclavian venous as without into the superior vena cava. Intraoperative fluoroscopy was used at confirm the proper placement of the tip of the guidewire. I then advanced a dilator breakaway sheath over the guidewire. The guidewire and dilator were removed leaving the sheath in place. A 9.6 [place]bourg[place] single-lumen catheter was advanced through the sheath into the right subclavian vein subsequently down into the right atrium of the heart. Intraoperative fluoroscopy was used once more to do visualize the tip of the catheter and then I pulled back on the catheter until the tip was at the junction of the superior vena cava and right atrium. The catheter was then cut at the appropriate length at the skin level and attached to the Smart Port. The port was then secured in subcu port pocket on 3 sides with a 3-0 Prolene suture. I then accessed the port with a Bell needle and aspirated blood easily and was flushed with heparinized saline solution. I then irrigated out the port pocket sterile saline solution. Hemostasis was good. I then closed the port pocket utilizing interrupted 3-0 Vicryl sutures in the subcutaneous tissues. The skin edges were approximated utilizing a running subcuticular 4-0 Monocryl suture. I then percutaneously accessed the port 1 last time. Again it aspirated blood easily and was flushed with 5000units of IV heparin. There is then cleaned and then skin glue was applied to the incision. The patient tolerated the procedure well no complications. All sponges, needles, and instrument counts were correct at the end procedure. EBL was __10_cc. The patient was awakened and taken to recovery in stable and satisfactory condition. Implants Smart Port attached to 9.6 Luxembourgish single-lumen catheter Estimated Blood Loss 10 Drains No Packing No Pathology None sent Complications No immediate complications Condition Stable Disposition PACU [facility] Billing Jean-Claude
[2023-04-14 14:35] LABS: Glucose Point of Care 142 mg/dl (65-105)
[2023-04-14 14:55] VITALS: BP 143/56; PULSE 79; RESP 18; O2SAT 99
[2023-04-14 15:25] VITALS: BP 163/67; PULSE 74; RESP 18; O2SAT 100
[2023-04-14 15:55] VITALS: BP 152/63; PULSE 73; RESP 16
== END 2023-04-14 16:17 | disposition home or self-care (01) ==
PROVIDERS: PCP Physician Assistant Medical; Visit Provider Surgery
PROC: (CPT 36561; principal; 2023-04-14 12:30)
DX: C25.1 Malignant neoplasm of body of pancreas (principal); R91.8 Other nonspecific abnormal finding of lung field; E10.9 Type 1 diabetes mellitus without complications; Z79.4 Long term (current) use of insulin; Z79.82 Long term (current) use of aspirin; Z79.891 Long term (current) use of opiate analgesic; Z85.07 Personal history of malignant neoplasm of pancreas; Z86.79 Personal history of other diseases of the circulatory system; Z82.49 Family history of ischemic heart disease and other diseases of the circulatory system; Z45.2 Encounter for adjustment and management of vascular access device
CPT/HCPCS: 36561; 36415; 77001; 82948; 85730; C1788; J0690; J1644; J2250; J2405; J2704; J3010; J7030; J7120

== ENCOUNTER 2023-04-23 16:41 | Inpatient (IN) | payer BC, SELFPAY ==
--- NOTE | ~2023-04-23 | US_ITS ---
EXAMINATION: US right upper quadrant DATE: 04/26/2023 10:42 INDICATION: Abnormal liver function tests. TECHNIQUE: Multiple grayscale and Doppler ultrasound images of the abdomen were obtained. COMPARISON: Ultrasound 02/24/2023, abdomen MRI 03/17/2023 FINDINGS: The visualized portions of the head and body of the pancreas are normal. There is mild intr ahepatic biliary duct dilatation. There is normal flow in main portal vein. The gallbladder is disten ded. No gallstones or gallbladder wall thickening. There is no sonographic Vazquez sign. The common du ct is dilated to 9 mm. IMPRESSION: 1. Intrahepatic and extrahepatic biliary duct dilatation and gallbladder distention, new from 03/17/20 23 suspicious for obstruction of the common duct by a stone or mass. Reviewed, dictated and finalized at location A. TIC PROCESS TECHNICIAN IMPRESSION: 1. Intrahepatic and extrahepatic biliary duct dilatation and gallbladder disten tion, new from 03/17/2023 suspicious for obstruction of the common duct by a sto ne or mass.
--- NOTE | ~2023-04-23 | XR_ITS ---
EXAMINATION: XR ERCP DATE: 04/28/2023 14:53 INDICATION: Elevated liver enzymes TECHNIQUE: Four intraoperative fluoroscopic images obtained during endoscopic retrograde cholangiopan creatography (ERCP) are submitted for review. Total fluoroscopic time was 166.5 seconds. COMPARISON: MRI, 04/27/2023 FINDINGS: Fluoroscopic images demonstrate retrograde opacification of the common bile duct with appar ent stricture of the duct. IMPRESSION: 1. Possible stricture of the common bile duct. Please refer to the ERCP procedure note for additional details. Reviewed, dictated and finalized at location F. NG MACHINE OPERATOR PLASTIC ZIPPER IMPRESSION: 1. Possible stricture of the common bile duct. Please refer to the ERCP procedu re note for additional details.
--- NOTE | ~2023-04-23 | MR_ITS ---
EXAMINATION: MR MRCP wo/w con/w 3D wo ind DATE: 04/27/2023 08:04 INDICATION: Abnormal liver function tests. TECHNIQUE: Magnetic resonance imaging (MRI) of the abdomen was performed without and with 10 mL Multi Celeste intravenous contrast. Sequences included coronal T2-weighted FS FSE, coronal T2-weighted FSE, a xial T1-weighted LAVA, coronal FS FIESTA, axial dual-echo T1-weighted SPGR, coronal lava-FLEX, sagitt al T2-weighted FSE, axial T2-weighted FSE, and axial DWI. Thick-slab T2-weighted FSE images were obta ined for magnetic resonance cholangiopancreatography (MRCP). Maximum intensity projection 3-D reconst ructions of the volumetric data were created by the technologist. Postcontrast sequences included cor onal LAVA-flex and time course of axial T1-weighted LAVA. COMPARISON: Abdomen MRI 03/17/2023, abdomen ultrasound 04/26/2023, CT abdomen and pelvis 03/21/2023 FINDINGS: ABDOMEN MRI: There are small pleural effusions. There are scattered pulmonary nodules, consistent met astatic disease. The heart size is normal. No pericardial effusion. There are approximately 8 masses in the liver measuring up to 12 mm. There is moderate intrahepatic biliary duct dilatation. There is a biliary stricture in the head of the pancreas. The gallbladder is distended. Gallbladder wall thick ening is noted. There are hypoenhancing versus nonenhancing masses in the spleen measuring up to 12 m m, stable from 02/19/23. The adrenal glands and right kidney are normal. There is mild left hydronephr osis. There is distention of the proximal colon. The small bowel is normal in caliber. There is a sma ll volume of ascites. There are ill-defined masses in the pancreas. ABDOMEN MRCP: There is moderate intrahepatic biliary duct dilatation. There is a stricture of the com mon duct in the pancreas. IMPRESSION: 1. Ill-defined masses in the pancreas, consistent with primary adenocarcinoma and metastatic disease. 2. Moderate intrahepatic biliary duct dilatation and gallbladder dilatation with malignant biliary st ricture in the head of the pancreas, new from 03/17/23. 3. Liver masses with worsening from 03/17/23, consistent with metastatic disease. Lung nodules, consis tent with metastatic disease. 4. Small pleural effusions. 5. Small volume of ascites. 6. Mild left hydronephrosis, stable from 02/19/23. 7. Splenic masses, stable from 02/19/2023, which may be granulomatous disease, infarcts, or metastatic disease. Reviewed, dictated and finalized at location A. MACHINE OPERATOR IMPRESSION: 1. Ill-defined masses in the pancreas, consistent with primary adenocarcinoma a nd metastatic disease. 2. Moderate intrahepatic biliary duct dilatation and gallbladder dilatation wit h malignant biliary stricture in the head of the pancreas, new from 03/17/23. 3. Liver masses with worsening from 03/17/23, consistent with metastatic disease . Lung nodules, consistent with metastatic disease. 4. Small pleural effusions. 5. Small volume of ascites. 6. Mild left hydronephrosis, stable from 02/19/23. 7. Splenic masses, stable from 02/19/2023, which may be granulomatous disease, i nfarcts, or metastatic disease.
[2023-04-23 16:46] VITALS: PULSE 94; RESP 16; TEMP 36.5; O2SAT 100
[2023-04-23 18:41] LABS: Basophils Percent Auto 0.1 % (0.2-1.2); Hematocrit 39.5 % (37.0-47.0); Hemoglobin 13.4 g/dL (12.0-15.0); Immature Granulocyte Absolute 0.03 K/mm3 (0.00-0.031); Immature Granulocyte Percent A 0.3 % (0-0.5); Lymphocytes Absolute Auto 1.11 K/mm3 (0.9-3.2); Lymphocytes Percent Auto 12.6 % (18.3-44.2); Mean Corpuscular HGB Conc 33.9 g/dl (32-36); Mean Corpuscular Hemoglobin 29.5 pg (26-34); Mean Corpuscular Volume 86.8 fl (80-100); Mean Platelet Volume 10.1 fl (7.4-10.4); Monocytes Absolute Auto 0.5 K/mm3 (0.1-0.6); Monocytes Percent Auto 6.1 % (2.6-8.5); Neutrophils Absolute Auto 7.1 K/mm3 (1.3-6.7); Neutrophils Percent Auto 80.9 % (45.5-73.1); Platelet Count Result 260 k/mm3 (150-375); Red Blood Count 4.55 M/mm3 (4.2-5.4); Red Cell Distribution Width 13.5 % (11.5-14.5); White Blood Count 8.8 K/mm3 (4.5-10.0)
[2023-04-23 19:10] LABS: Albumin Level 4.4 g/dL (3.5-5.1); Alkaline Phosphatase 359 U/L (38-126); Anion Gap 12 mmol/L (8-16); Bilirubin,Total 9.1 mg/dL (0.2-1.3); Blood Urea Nitrogen 11 mg/dL (7-17); Calcium 9.8 mg/dL (8.4-10.2); Carbon Dioxide 29 mmol/L (22-30); Chloride 92 mmol/L (98-107); Estimated Glomerular Filt Rate > 60; Glucose 91 mg/dL (65-110); Lipase 89 U/L (23-300); Potassium 3.6 mmol/L (3.4-5.0); Sodium 133 mmol/L (137-145)
[2023-04-23 19:12] VITALS: BP 144/60
[2023-04-23 19:13] VITALS: BP 105/54; BP 127/67; PULSE 95
[2023-04-23 19:31] LABS: Alanine Aminotransferase 833 U/L (6-35); Aspartate Amino Transferase 817 U/L (14-36)
[2023-04-23 19:42] LABS: Add Urine Microscopic? YES; Appearance Urine Clear (Clear); Bacteria Urine None Seen /hpf; Bilirubin Urine 3+ (Negative); Blood Urine Negative (Negative); Color Urine Dark Yellow (Yellow); Glucose Urine UA Negative (Negative); Ketones Urine Negative (Negative); Leukocyte Esterase Ur Trace LEU/UL (Negative); Need Manual Microscopic Reviewed; Nitrate Urine Negative (Negative); Non Pathogenic Casts 0-2; Protein Urine 2+ mg/dL (Negative); Specific Grav Ur 1.018 (1.001-1.035); Squamous Epithelial Cell Urine Occasional /hpf (Few); WBC Urine 0-5 /hpf; pH Urine 6.5 (5.0-9.0)
--- NOTE | 2023-04-23 20:07 | ED.GENADULT ---
HPI - General Adult General Chief complaint: Nausea/Vomiting/Diarrhea Stated complaint: vomiting from chemo Time Seen by Provider: 04/23/23 19:12 History of Present Illness HPI narrative: This is a 62-year-old female who has recently started chemotherapy for stage IV pancreatic cancer. She started receiving injection yesterday. She has been persistently nauseous and vomiting with diarrhea throughout the day. She has a known been unable to keep any fluids down. She is a type 1 diabetic and has not been able to eat any food. Patient follows with Dr. Robin. Related Data Home Medications Medication Instructions Recorded Confirmed insulin glargine 100 unit/mL (3 21 unit subcut QAM 02/17/23 04/22/23 mL) subcutaneous pen (Lantus Solostar U-100 Insulin) insulin lispro 100 unit/mL 1 sliding scale dose subcut 02/17/23 04/22/23 subcutaneous pen USEASDIRECTD aspirin 81 mg chewable tablet 81 mg PO DAILY 03/19/23 04/22/23 ondansetron 8 mg disintegrating 8 mg translingual Q6H PRN Nausea 04/11/23 04/22/23 tablet And Vomiting prochlorperazine maleate 5 mg 5 mg PO Q8H PRN Nausea And Vomiting 04/18/23 04/22/23 tablet (Compazine) potassium chloride 10 mEq 10 meq PO DAILY 04/22/23 04/22/23 capsule,extended release Allergies Allergy/AdvReac Type Severity Reaction Status Date / Time No Known Allergies Allergy Unknown Verified 04/22/23 09:32 [facility] Past Medical History Medical History BMI 22.0-22.9, adult Diabetic ketoacidosis without coma associated with type 1 diabetes mellitus Encounter for other screening for malignant neoplasm of breast Herpes zoster without complication Impacted cerumen of both ears Pancreatic cancer Splenic artery aneurysm Toenail torn away Type 1 diabetes mellitus without complications Family History Family History Father Hypertension Family history of chronic obstructive pulmonary disease Family history of congestive heart failure Mother Hypertension Family history of diabetes mellitus in first degree relative Sibling Hypertension Other Diabetes mellitus Social History Social History Smoking status: Never smoker Second hand tobacco smoke exposure: Yes Alcohol intake: never Substance use: never Substance use type: does not use Living arrangements: alone Occupation/Education: occupation 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 Head: atraumatic. EYES: EOMI, on this NOSE: Atraumatic NECK: Trachea midline RESPIRATORY: No increased rate of breathing, clear auscultation CARDIOVASCULAR: RRR, Port-A-Cath in place with infusion actively going ABDOMINAL: Non-distended MUSCULOSKELETAl: No obvious deformities NEURO: Alert. Moving 4/4 extremities SKIN:: Warm, dry. Normal color PSYCHIATRIC: Normal affect Course Vital Signs Vital signs: Vital Signs Temperature 97.7 F 04/23/23 16:46 Pulse Rate 94 04/23/23 16:46 Respiratory Rate 16 04/23/23 16:46 Pulse Oximetry 100 04/23/23 16:46 Oxygen Delivery Room Air 04/23/23 16:46 Temperature 97.7 F 04/23/23 16:46 Pulse Rate 95 04/23/23 19:13 Respiratory Rate 16 04/23/23 16:46 Blood Pressure 105/54 L 04/23/23 19:13 Pulse Oximetry 100 04/23/23 16:46 Oxygen Delivery Room Air 04/23/23 16:46 Medical Decision Making [facility] Narrative Medical decision making narrative: -Course: This is a 62-year-old female with stage IV pancreatic cancer. She started chemotherapy today is now had persistent nausea vomiting complicated by her type 1 diabetes. She was initially hypoglycemic at 60 on arrival. Patient has been given D5/antiemetics, fluid resuscitation.
[2023-04-23] MEDS: ONDANSETRON INJ 4 MG/2 ML VIAL 8 MG IV PUSH (20:30)
[2023-04-23] MEDS: DEXTROSE 5%/LACTATED RINGERS 1,000 ML 999 ML IV CONT (20:31)
[2023-04-23] MEDS: PROCHLORPERAZINE EDISYLATE 10 MG/2 ML VIAL IV PUSH (20:31)
[2023-04-23] MEDS: HYDROmorphone HCL INJ (*CRX) 1 MG/ML SYR 0.5 MG IV PUSH (20:42)
[2023-04-23 22:00] VITALS: BP 163/62; PULSE 81; RESP 18; TEMP 36.7; O2SAT 98
[2023-04-23] MEDS: SODIUM CHLORIDE 0.9% IV 1,000 ML 999 ML IV CONT (22:11)
[2023-04-23 22:45] VITALS: BMI 20.9
--- NOTE | 2023-04-23 22:54 | ADMGEN ---
This patient, Viji Angulo, was admitted to 2 Medical Room 260-01. Patient/family oriented to hospital policies and general routines including ID bracelet, bed and alarms, visiting hours, pain management, procedures, bathroom and other care routines, personal items, smoking policy, room service/diet, and visiting hours. Information on how to activate the Rapid Response Team has been discussed. Patient/Family are encouraged to report perceived risks to care and to ask questions if they do not understand what they are told or what they should do.
[2023-04-23 23:01] LABS: Glucose Point of Care 188 mg/dl (65-105)
[2023-04-23] MEDS: ONDANSETRON INJ 4 MG/2 ML VIAL IV PUSH (23:30)
[2023-04-23] MEDS: HYDROmorphone HCL INJ (*CRX) 1 MG/ML SYR IV PUSH (23:32)
[2023-04-24] MEDS: DEXTROSE 5%/0.9% SOD CHL 1,000 ML 100 ML IV CONT (04:30)
[2023-04-24 05:35] VITALS: BP 141/61; PULSE 77; RESP 18; TEMP 36.5; O2SAT 99
[2023-04-24 08:33] LABS: Glucose Point of Care 263 mg/dl (65-105)
[2023-04-24] MEDS: ONDANSETRON INJ 4 MG/2 ML VIAL IV PUSH ×3 (08:36→20:14)
--- NOTE | 2023-04-24 11:25 | PC.NURSE ---
On 04/24/23, the student, [Michelle Peña], provided care and completed [facility] documentation on this patient. I have reviewed the student's documentation and agree with the findings.
[2023-04-24 11:31] LABS: Glucose Point of Care 292 mg/dl (65-105)
[2023-04-24] MEDS: SODIUM CHLORIDE 0.9% IV 1,000 ML 100 ML IV CONT ×2 (11:54→21:57)
[2023-04-24] MEDS: INSULIN ASPART (*BKC) 100 UNITS/ML SUB-Q ×2 (11:58→17:14)
[2023-04-24 12:01] VITALS: BMI 20.9
--- NOTE | 2023-04-24 12:01 | PM.IMHP ---
H&P: HPI History of Present Illness Date/Time: 04/24/23 12:01 Chief Complaint: nausea, sickness and diarrhea Narrative: 62-year-old female who has recently started chemotherapy for stage IV pancreatic cancer. Admitted for nausea, vomiting, and diarrhea. Pt had port placed states she is due to have it removed today. Pt had history of DM and breast cancer in the past Pt is admitted for intractable n and v. Pts sugars are running high today BS are in the 220. Review of Systems Review of Systems: Diarrhea nausea and vomiting PMFSH Past Medical History Medical History (Updated 04/24/23 @ 12:08 by Elsie Soni MD) BMI 22.0-22.9, adult Diabetic ketoacidosis without coma associated with type 1 diabetes mellitus Encounter for other screening for malignant neoplasm of breast Herpes zoster without complication Impacted cerumen of both ears Pancreatic cancer Splenic artery aneurysm Toenail torn away Type 1 diabetes mellitus without complications Family History Family History Father Hypertension Family history of chronic obstructive pulmonary disease Family history of congestive heart failure Mother Hypertension Family history of diabetes mellitus in first degree relative Sibling Hypertension Other Diabetes mellitus Social History Social History Smoking status: Never smoker Second hand tobacco smoke exposure: Yes Alcohol intake: never Substance use: never Substance use type: does not use Lack of Transportation: No Lack of Food: Never True Current Housing: I Have Housing Concerned About Future Housing: No Difficulty Paying Gas/Electric Bills: No Difficulty Paying for Meds: No Currently Unemployed: No Education: High School Diploma/GED Difficulty w/ Childcare or Family Care: No Living arrangements: alone Occupation/Education: occupation 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 Gender identity (if verbalized by the patient): Female Spiritual care concerns: No Meds Home Medications and Allergies Home Medications Medication Instructions Recorded Confirmed Type insulin glargine 100 unit/mL (3 21 unit subcut QAM 02/17/23 04/23/23 History mL) subcutaneous pen (Lantus Solostar U-100 Insulin) insulin lispro 100 unit/mL 1 sliding scale dose subcut 02/17/23 04/23/23 History subcutaneous pen USEASDIRECTD aspirin 81 mg chewable tablet 81 mg PO DAILY 03/19/23 04/23/23 History hydroxyzine HCl 25 mg tablet 25 mg PO TID PRN anxiety #30 tabs 04/02/23 04/23/23 Rx tramadol 50 mg tablet 50 mg PO BID PRN pain #60 tabs 04/02/23 04/23/23 Rx ondansetron 8 mg disintegrating 8 mg translingual Q6H PRN Nausea 04/11/23 04/23/23 History tablet And Vomiting prochlorperazine maleate 5 mg 5 mg PO Q8H PRN Nausea And Vomiting 04/18/23 04/23/23 History tablet (Compazine) potassium chloride 10 mEq 10 meq PO DAILY 04/22/23 04/23/23 History capsule,extended release rosuvastatin 20 mg tablet 20 mg PO DAILY 04/23/23 04/23/23 History Allergies Allergy/AdvReac Type Severity Reaction Status Date / Time No Known Allergies Allergy Unknown Verified 04/23/23 23:11 Vital Signs Vital Signs - 24 hr 04/23/23 16:46 04/23/23 19:12 04/23/23 19:13 Temperature 36.5 C Pulse Rate 94 95 Respiratory Rate 16 Blood Pressure 144/60 H 127/67 Pulse Oximetry 100 Oxygen Delivery Room Air 04/23/23 19:13 04/23/23 22:00 04/24/23 05:35 Temperature 36.7 C 36.5 C Pulse Rate 95 81 77 Respiratory Rate 18 18 Blood Pressure 105/54 L 163/62 H 141/61 H Pulse Oximetry 98 99 Oxygen Delivery 04/24/23 08:00 Temperature Pulse Rate Respiratory Rate Blood Pressure Pulse Oximetry Oxygen Delivery Room Air Exam Const: General: cooperative, healthy appearing and overweight; No in distress Nutritional Appearance: overw
[2023-04-24 12:34] LABS: Anion Gap 9 mmol/L (8-16); Blood Urea Nitrogen 9 mg/dL (7-17); Calcium 8.5 mg/dL (8.4-10.2); Carbon Dioxide 27 mmol/L (22-30); Chloride 95 mmol/L (98-107); Estimated CRCL calculation 78 ml/min; Estimated Glomerular Filt Rate > 60; Glucose 273 mg/dL (65-110); Potassium 3.8 mmol/L (3.4-5.0); Sodium 131 mmol/L (137-145)
[2023-04-24 12:35] LABS: Hemoglobin A1C 6.7 % (<5.7)
[2023-04-24 14:00] VITALS: BP 141/61; PULSE 79; RESP 16; TEMP 37.2; O2SAT 99
--- NOTE | 2023-04-24 16:56 | PDONCCN ---
HPI - Date of Consult Date/Time: 04/25/23 17:33 <Nadeem Robin - 04/25/23 17:36> 04/24/23 16:56 <Ophelia Calvin - 04/24/23 17:13> Requesting Physician: Tati Beaver MD <Nadeem Robin - 04/25/23 17:36> Tati Beaver MD <Ophelia Calvin - 04/24/23 17:13> Primary Care Provider: AYSE Dang <Nadeem Robni - 04/25/23 17:36> Ange Arnold PAC <Ophelia Calvin - 04/24/23 17:13> - Consult Narrative Reason for consult: Chemotherapy Nausea/Vomiting <Ophelia Calvin - 04/24/23 17:13> Narrative: Viji Angulo is a 62 year old female <Nadeem Robin - 04/25/23 17:36> Viji Angulo is a 62 year old female with a past medical history of DM type 1, stage IV metastatic pancreatic cancer that was admitted for intractable nausea and vomiting after starting FOLFIRINOX on Friday. This was a continuous at home chemotherapy given by a pump. She states the nausea and vomiting started Friday night after starting chemotherapy Friday. She decided to go to the ED Friday evening after not being able to keep anything down for 24hours. She tried antiemetics at home without any success. She is unable to tolerate small sips of water or small bites of food. On admission to the ED, she was found to be hypoglycemic. Today, she is still having intractable nausea and vomiting without relief from oral antiemetics. Chemotherapy was given to completion. She is currently receiving IVF 100ml/hr for dehydration. Labs from 04/23/23 show AST 817, ALT 833, Creatinine 0.40, Sodium 133. <Ophelia Calvin - 04/24/23 17:13> Review of Systems - Review of Systems All systems reviewed & are unremarkable except as noted in HPI and bel <Ophelia Calvin - 04/24/23 17:13> - Gastrointestinal Reports nausea, Reports vomiting <Ophelia Calvin - 04/24/23 17:13> [facility] Medical History: Medical History (Last Updated 04/24/23 @ 12:08 by Elsie Soni MD) BMI 22.0-22.9, adult Diabetic ketoacidosis without coma associated with type 1 diabetes mellitus Encounter for other screening for malignant neoplasm of breast Herpes zoster without complication Impacted cerumen of both ears Pancreatic cancer Splenic artery aneurysm Toenail torn away Type 1 diabetes mellitus without complications <Nadeem Robin - 04/25/23 17:35> Medical History (Last Updated 04/24/23 @ 12:08 by Elsie Soni MD) BMI 22.0-22.9, adult Diabetic ketoacidosis without coma associated with type 1 diabetes mellitus Encounter for other screening for malignant neoplasm of breast Herpes zoster without complication Impacted cerumen of both ears Pancreatic cancer Splenic artery aneurysm Toenail torn away Type 1 diabetes mellitus without complications <Ophelia Calvin - 04/24/23 17:13> Family History: Family History (Last Reviewed 04/24/23 @ 12:04 by Elsie Soni MD) Father Hypertension Family history of chronic obstructive pulmonary disease Family history of congestive heart failure Mother Hypertension Family history of diabetes mellitus in first degree relative Sibling Hypertension Other Diabetes mellitus <Nadeem Robin - 04/25/23 17:35> Family History (Last Reviewed 04/24/23 @ 12:04 by Elsie Soni MD) Father Hypertension Family history of chronic obstructive pulmonary disease Family history of congestive heart failure Mother Hypertension Family history of diabetes mellitus in first degree relative Sibling Hypertension Other Diabetes mellitus <Ophelia Calvin - 04/24/23 17:13> - Social History Social History: Social History (Last Reviewed 04/24/23 @ 12:04 by Elsie Soni MD) Gender Identity: Gender identity (if verbalized by the patient): Female Alcohol Use: Alcohol intake: never Substance Use: Substance use: never S
[2023-04-24 17:11] LABS: Glucose Point of Care 222 mg/dl (65-105)
[2023-04-24] MEDS: PROCHLORPERAZINE EDISYLATE 10 MG/2 ML VIAL IV PUSH ×2 (17:11→23:44)
[2023-04-24 20:07] VITALS: BP 170/67; PULSE 87; RESP 18; TEMP 36.3; O2SAT 97
[2023-04-24] MEDS: HYDROmorphone HCL INJ (*CRX) 1 MG/ML SYR IV PUSH (20:14)
[2023-04-24] MEDS: CENTRAL LINE FLUSH 10 ML IV PUSH (20:26)
[2023-04-24 21:02] LABS: Glucose Point of Care 210 mg/dl (65-105)
[2023-04-25 04:05] VITALS: BP 151/56; PULSE 86; RESP 18; TEMP 36.4; O2SAT 95
[2023-04-25] MEDS: PROCHLORPERAZINE EDISYLATE 10 MG/2 ML VIAL IV PUSH ×3 (05:32→17:37)
[2023-04-25] MEDS: CENTRAL LINE FLUSH 10 ML IV PUSH ×5 (05:33→20:48)
[2023-04-25 08:21] LABS: Glucose Point of Care 258 mg/dl (65-105)
[2023-04-25] MEDS: SODIUM CHLORIDE 0.9% IV 1,000 ML 100 ML IV CONT ×2 (09:19→19:25)
[2023-04-25 09:20] LABS: Glucose Point of Care 322 mg/dl (65-105)
[2023-04-25] MEDS: INSULIN ASPART (*BKC) 100 UNITS/ML SUB-Q ×3 (09:31→17:37)
[2023-04-25] MEDS: ENOXAPARIN 40 MG/0.4 ML SYRINGE SUB-Q (09:31)
[2023-04-25] MEDS: HYDROmorphone HCL INJ (*CRX) 1 MG/ML SYR IV PUSH (10:40)
[2023-04-25 11:21] LABS: Hematocrit 31.7 % (37.0-47.0); Hemoglobin 10.4 g/dL (12.0-15.0); Immature Platelet Fraction Pct 5.1 % (0.9-11.2); Mean Corpuscular HGB Conc 32.8 g/dl (32-36); Mean Corpuscular Hemoglobin 29.5 pg (26-34); Mean Corpuscular Volume 89.8 fl (80-100); Mean Platelet Volume 10.1 fl (7.4-10.4); Platelet Count Result 140 k/mm3 (150-375); Red Blood Count 3.53 M/mm3 (4.2-5.4); Red Cell Distribution Width 13.7 % (11.5-14.5)
[2023-04-25 11:32] LABS: Alanine Aminotransferase 688 U/L (6-35); Alkaline Phosphatase 276 U/L (38-126); Anion Gap 12 mmol/L (8-16); Aspartate Amino Transferase 516 U/L (14-36); Bilirubin,Total 10.5 mg/dL (0.2-1.3); Blood Urea Nitrogen 13 mg/dL (7-17); Calcium 8.3 mg/dL (8.4-10.2); Carbon Dioxide 22 mmol/L (22-30); Chloride 96 mmol/L (98-107); Estimated CRCL calculation 78 ml/min; Estimated Glomerular Filt Rate > 60; Glucose 278 mg/dL (65-110); Potassium 3.4 mmol/L (3.4-5.0); Sodium 130 mmol/L (137-145)
[2023-04-25 11:57] LABS: Glucose Point of Care 252 mg/dl (65-105)
--- NOTE | 2023-04-25 13:38 | PC.NURSE ---
On 04/25/23, the student, [Soham Andersen], provided care and completed [facility] documentation on this patient. I have reviewed the student's documentation and agree with the findings.
[2023-04-25 14:00] VITALS: BP 138/53; PULSE 80; RESP 16; TEMP 36.7; O2SAT 98
[2023-04-25] MEDS: ONDANSETRON INJ 4 MG/2 ML VIAL IV PUSH ×2 (15:30→20:58)
--- NOTE | 2023-04-25 17:14 | PM.IMPN ---
Progress Note: A&P Assessment and Plan (1) Nausea & vomiting: Qualifiers: Vomiting type: unspecified Qualified Code(s): R11.2 - Nausea with vomiting, unspecified Code(s): R11.2 - Nausea with vomiting, unspecified Status: Acute Assessment and Plan: Pt started on fluids and antiemetics encourage food Watch blood sugars in hospital (2) Pancreatic cancer: Code(s): C25.9 - Malignant neoplasm of pancreas, unspecified Status: Acute Assessment and Plan: Pt started on chemotheraphy Pt has a port in situ Pt is under oncology services (3) Type 1 diabetes mellitus without complications: Code(s): E10.9 - Type 1 diabetes mellitus without complications Status: Acute Assessment and Plan: Pt is nauseated lost appetite NS fluids and encourage DM diet Accuchecks, SSI Plan 62-year-old female recently diagnosed with stage IV pancreatic cancer and was started on chemotherapy received it on 04/22/2023 presented with persistent nausea and vomiting with diarrhea. She has underlying type 1 diabetes and takes insulin. Evaluation in the ED revealed normal cbc hyponatremia hypochloremia elevated liver enzymes with AST 817 ALT of 833 with alkaline phosphatase of 359 P 80 UA negative for infection. Admitted for IV fluids and supportive treatment. Improving. Continue IV fluids symptomatic treatment. Will use port for IV hydration therapy. Oncology has been consulted. Continue insulin for diabetes. History of aortic stenosis Hyperlipidemia will statin due to elevated liver enzymes Type 1 diabetes will resume her insulin History of splenic artery aneurysm DVT prophylaxis: Lovenox Subjective Date/time seen: 04/25/23 17:14 Interval history: 62-year-old female recently diagnosed with stage IV pancreatic cancer and was started on chemotherapy received it on 04/22/2023 presented with persistent nausea and vomiting with diarrhea. She has underlying type 1 diabetes and takes insulin. Evaluation in the ED revealed normal cbc hyponatremia hypochloremia elevated liver enzymes with AST 817 ALT of 833 with alkaline phosphatase of 359 P 80 UA negative for infection. Admitted for IV fluids and supportive treatment. Improving. Continue IV fluids symptomatic treatment. Will use port for IV hydration therapy. Oncology has been consulted. Continue insulin for diabetes. History of aortic stenosis Hyperlipidemia History of splenic artery aneurysm Review of Systems Review of Systems: All systems reviewed & are unremarkable except as noted in HPI and below Exam Narrative: APPEARANCE: No apparent distress. Tired looking Head: atraumatic. EYES:? EOMI, PERRLA NOSE: Atraumatic NECK: Trachea midline RESPIRATORY: No increased rate of breathing, clear auscultation CARDIOVASCULAR: RRR, Port-A-Cath in place ABDOMINAL: Non-distended MUSCULOSKELETAl: No obvious deformities NEURO: Alert. Moving 4/4 extremities SKIN:: Warm, dry. Normal color PSYCHIATRIC: Normal affect Objective Data Vital Signs Vital Signs: Vital Signs - 24 hr 04/24/23 20:07 04/24/23 20:10 04/25/23 04:05 Temperature 97.3 F L 97.6 F Pulse Rate 87 86 Respiratory Rate 18 18 Blood Pressure 170/67 H 151/56 H Pulse Oximetry 97 95 Oxygen Delivery Room Air 04/25/23 10:29 04/25/23 09:40 04/25/23 14:00 Temperature 98.1 F Pulse Rate 80 Respiratory Rate 16 Blood Pressure 138/53 L Pulse Oximetry 98 Oxygen Delivery Room Air Room Air Intake/Output Intake/Output: Intake & Output 04/22/23 04/23/23 04/24/23 04/25/23 23:59 23:59 23:59 23:59 Intake Total 19990 1650 Output Total 700 1750 300 Balance 2635 893 7502 Meds/Results Medications: Active Medications Generic Name Dose Route Start Last Admin Trade Name Freq PRN Reason Stop Dose Admin Dextrose 12.5 gm 04/24/23 11:21 Dextrose 50% 25 Gm/50 Ml Syringe IV PUSH PRN PRN Hypoglycemia Protocol Linda
[2023-04-25 17:22] LABS: Glucose Point of Care 260 mg/dl (65-105)
[2023-04-25 19:19] VITALS: BP 126/48; PULSE 83; RESP 12; TEMP 36.4; O2SAT 97
[2023-04-25] MEDS: INSULIN GLARGINE (*BKC) 100 UNITS/ML 16 UNITS SUB-Q (19:26)
[2023-04-25 20:16] LABS: Glucose Point of Care 200 mg/dl (65-105)
[2023-04-26] MEDS: PROCHLORPERAZINE EDISYLATE 10 MG/2 ML VIAL IV PUSH ×4 (01:08→18:19)
[2023-04-26 05:06] VITALS: BP 157/68; PULSE 84; RESP 16; TEMP 36.7; O2SAT 97
[2023-04-26] MEDS: SODIUM CHLORIDE 0.9% IV 1,000 ML 100 ML IV CONT ×2 (05:35→15:36)
[2023-04-26] MEDS: CENTRAL LINE FLUSH 10 ML IV PUSH ×6 (05:35→21:19)
[2023-04-26 06:12] LABS: Basophils Percent Auto 0.3 % (0.2-1.2); Eosinophils Absolute Auto 0.1 K/mm3 (0-0.3); Eosinophils Percent Auto 3.5 % (0-4.4); Hematocrit 31.5 % (37.0-47.0); Hemoglobin 10.5 g/dL (12.0-15.0); Immature Granulocyte Absolute 0.01 K/mm3 (0.00-0.031); Immature Granulocyte Percent A 0.3 % (0-0.5); Immature Platelet Fraction Pct 5.4 % (0.9-11.2); Lymphocytes Absolute Auto 0.48 K/mm3 (0.9-3.2); Lymphocytes Percent Auto 15.4 % (18.3-44.2); Mean Corpuscular HGB Conc 33.3 g/dl (32-36); Mean Corpuscular Hemoglobin 29.5 pg (26-34); Mean Corpuscular Volume 88.5 fl (80-100); Monocytes Absolute Auto 0.1 K/mm3 (0.1-0.6); Monocytes Percent Auto 1.6 % (2.6-8.5); Neutrophils Absolute Auto 2.5 K/mm3 (1.3-6.7); Neutrophils Percent Auto 78.9 % (45.5-73.1); Platelet Count Result 122 k/mm3 (150-375); Red Blood Count 3.56 M/mm3 (4.2-5.4); Red Cell Distribution Width 13.4 % (11.5-14.5); White Blood Count 3.1 K/mm3 (4.5-10.0)
[2023-04-26 06:17] LABS: Alanine Aminotransferase 632 U/L (6-35); Albumin Level 2.9 g/dL (3.5-5.1); Alkaline Phosphatase 306 U/L (38-126); Anion Gap 8 mmol/L (8-16); Aspartate Amino Transferase 446 U/L (14-36); Bilirubin,Total 12.2 mg/dL (0.2-1.3); Blood Urea Nitrogen 8 mg/dL (7-17); Calcium 8.3 mg/dL (8.4-10.2); Carbon Dioxide 25 mmol/L (22-30); Chloride 98 mmol/L (98-107); Estimated CRCL calculation 95 ml/min; Estimated Glomerular Filt Rate > 60; Glucose 115 mg/dL (65-110); Magnesium 1.5 mg/dL (1.6-2.3); Potassium 3.2 mmol/L (3.4-5.0); Sodium 131 mmol/L (137-145)
[2023-04-26 08:35] LABS: Glucose Point of Care 134 mg/dl (65-105)
[2023-04-26] MEDS: POTASSIUM CHLORIDE 10 MEQ ER TABLET PO (10:50)
[2023-04-26] MEDS: POTASSIUM CHLORIDE 20 MEQ ER TABLET 40 MEQ PO (10:50)
[2023-04-26] MEDS: ASPIRIN 81 MG CHEWABLE TABLET PO (10:50)
[2023-04-26] MEDS: MAGNESIUM SULF 2 GM/WATER 50ML 2 GM/50 ML BAG IVPB (10:51)
[2023-04-26] MEDS: ENOXAPARIN 40 MG/0.4 ML SYRINGE SUB-Q (10:51)
[2023-04-26] MEDS: HYDROmorphone HCL INJ (*CRX) 1 MG/ML SYR IV PUSH ×2 (11:28→19:49)
[2023-04-26] MEDS: ONDANSETRON INJ 4 MG/2 ML VIAL IV PUSH ×2 (11:32→19:49)
[2023-04-26 12:19] LABS: Glucose Point of Care 224 mg/dl (65-105)
[2023-04-26] MEDS: INSULIN ASPART (*BKC) 100 UNITS/ML SUB-Q (12:35)
--- NOTE | 2023-04-26 13:23 | PM.IMPN ---
Progress Note: A&P Assessment and Plan (1) Nausea & vomiting: Qualifiers: Vomiting type: unspecified Qualified Code(s): R11.2 - Nausea with vomiting, unspecified Code(s): R11.2 - Nausea with vomiting, unspecified Status: Acute Assessment and Plan: Pt started on fluids and antiemetics encourage food Watch blood sugars in hospital (2) Pancreatic cancer: Code(s): C25.9 - Malignant neoplasm of pancreas, unspecified Status: Acute Assessment and Plan: Pt started on chemotheraphy Pt has a port in situ Pt is under oncology services (3) Type 1 diabetes mellitus without complications: Code(s): E10.9 - Type 1 diabetes mellitus without complications Status: Acute Assessment and Plan: Pt is nauseated lost appetite NS fluids and encourage DM diet Accuchecks, SSI Plan 62-year-old female recently diagnosed with stage IV pancreatic cancer and was started on chemotherapy received it on 04/22/2023 presented with persistent nausea and vomiting with diarrhea. She has underlying type 1 diabetes and takes insulin. Evaluation in the ED revealed normal cbc hyponatremia hypochloremia elevated liver enzymes with AST 817 ALT of 833 with alkaline phosphatase of 359 P 80 UA negative for infection. Admitted for IV fluids and supportive treatment. Improving. Continue IV fluids symptomatic treatment. Will use port for IV hydration therapy. Oncology has been consulted. Continue insulin for diabetes. Elevated liver enzymes: Right upper quadrant ultrasound with intrahepatic and extrahepatic biliary duct dilatation right and gallbladder distention new suspicious for obstruction by stone or mass. Will consult GI. Keep her on clear will do an MRI MRCP to delineate the cause. Regardless she may need ERCP for biliary stenting /extraction of stone History of aortic stenosis Hyperlipidemia will hold statin due to elevated liver enzymes Type 1 diabetes will resume her insulin History of splenic artery aneurysm DVT prophylaxis: Lovenox Subjective Date/time seen: 04/26/23 13:23 Interval history: 62-year-old female recently diagnosed with stage IV pancreatic cancer and was started on chemotherapy received it on 04/22/2023 presented with persistent nausea and vomiting with diarrhea. She has underlying type 1 diabetes and takes insulin. Evaluation in the ED revealed normal cbc hyponatremia hypochloremia elevated liver enzymes with AST 817 ALT of 833 with alkaline phosphatase of 359 P 80 UA negative for infection. Admitted for IV fluids and supportive treatment. Improving. Continue IV fluids symptomatic treatment. Will use port for IV hydration therapy. Oncology has been consulted. Continue insulin for diabetes. History of aortic stenosis Hyperlipidemia History of splenic artery aneurysm 04/26/2023: Feels a bit better. able to keep her down. No nausea. no abdominal pain. Remains AFib blood sugar trend reviewed. Review of Systems Review of Systems: All systems reviewed & are unremarkable except as noted in HPI and below Exam Narrative: APPEARANCE: No apparent distress. Tired looking Head: atraumatic. EYES:? EOMI, PERRLA NOSE: Atraumatic NECK: Trachea midline RESPIRATORY: No increased rate of breathing, clear auscultation CARDIOVASCULAR: RRR, Port-A-Cath in place ABDOMINAL: Soft nontender MUSCULOSKELETAl: No obvious deformities NEURO: Alert. Moving 4/4 extremities SKIN:: Warm, dry. Normal color PSYCHIATRIC: Normal affect Objective Data Vital Signs Vital Signs: Vital Signs - 24 hr 04/25/23 14:00 04/25/23 19:19 04/25/23 20:38 Temperature 98.1 F 97.6 F Pulse Rate 80 83 Respiratory Rate 16 12 Blood Pressure 138/53 L 126/48 L Pulse Oximetry 98 97 Oxygen Delivery Room Air 04/26/23 05:06 Temperature 98.1 F Pulse Rate 84 Respiratory Rate 16 Blood Pressure 157/68 H Pulse Oximetry 97 Oxygen Delivery Intake/Output Intake/Output
[2023-04-26 14:00] VITALS: BP 120/52; PULSE 75; RESP 14; TEMP 36.4; O2SAT 98
[2023-04-26] MEDS: PIPERACILLN/TAZ 3.375GM/NS50ML 3.375 GM/50 ML BAG IVPB ×2 (15:37→21:17)
[2023-04-26 17:28] LABS: Glucose Point of Care 189 mg/dl (65-105)
[2023-04-26 19:17] VITALS: BP 151/62; PULSE 75; RESP 16; TEMP 36.4; O2SAT 95
[2023-04-26 20:41] LABS: Glucose Point of Care 159 mg/dl (65-105)
[2023-04-26] MEDS: INSULIN GLARGINE (*BKC) 100 UNITS/ML 16 UNITS SUB-Q (21:17)
[2023-04-27] MEDS: PROCHLORPERAZINE EDISYLATE 10 MG/2 ML VIAL IV PUSH ×3 (00:08→18:28)
[2023-04-27 00:17] LABS: Glucose Point of Care 150 mg/dl (65-105)
[2023-04-27] MEDS: SODIUM CHLORIDE 0.9% IV 1,000 ML 100 ML IV CONT ×3 (01:37→23:35)
[2023-04-27] MEDS: PIPERACILLN/TAZ 3.375GM/NS50ML 3.375 GM/50 ML BAG IVPB ×4 (01:37→19:53)
[2023-04-27 04:34] VITALS: BP 169/75; PULSE 86; RESP 16; TEMP 36.7; O2SAT 98
[2023-04-27] MEDS: HYDROmorphone HCL INJ (*CRX) 1 MG/ML SYR IV PUSH ×2 (05:15→18:28)
[2023-04-27] MEDS: CENTRAL LINE FLUSH 10 ML IV PUSH ×6 (05:35→22:50)
[2023-04-27] MEDS: CENTRAL LINE FLUSH 20 ML IV PUSH (05:35)
[2023-04-27 05:49] LABS: Glucose Point of Care 96 mg/dl (65-105)
[2023-04-27 06:13] LABS: Basophils Percent Auto 0.4 % (0.2-1.2); Eosinophils Absolute Auto 0.2 K/mm3 (0-0.3); Eosinophils Percent Auto 8.3 % (0-4.4); Hematocrit 27.9 % (37.0-47.0); Hemoglobin 9.2 g/dL (12.0-15.0); Immature Granulocyte Absolute 0.02 K/mm3 (0.00-0.031); Immature Granulocyte Percent A 0.9 % (0-0.5); Immature Platelet Fraction Pct 6.2 % (0.9-11.2); Lymphocytes Absolute Auto 0.38 K/mm3 (0.9-3.2); Lymphocytes Percent Auto 16.5 % (18.3-44.2); Mean Corpuscular Hemoglobin 29.4 pg (26-34); Mean Corpuscular Volume 89.1 fl (80-100); Mean Platelet Volume 10.8 fl (7.4-10.4); Monocytes Percent Auto 1.3 % (2.6-8.5); Neutrophils Absolute Auto 1.7 K/mm3 (1.3-6.7); Neutrophils Percent Auto 72.6 % (45.5-73.1); Platelet Count Result 92 k/mm3 (150-375); Red Blood Count 3.13 M/mm3 (4.2-5.4); Red Cell Distribution Width 13.6 % (11.5-14.5); White Blood Count 2.3 K/mm3 (4.5-10.0)
[2023-04-27 06:25] LABS: Alanine Aminotransferase 471 U/L (6-35); Albumin Level 2.5 g/dL (3.5-5.1); Alkaline Phosphatase 253 U/L (38-126); Anion Gap 4 mmol/L (8-16); Aspartate Amino Transferase 283 U/L (14-36); Bilirubin,Total 9.7 mg/dL (0.2-1.3); Blood Urea Nitrogen 7 mg/dL (7-17); Calcium 7.6 mg/dL (8.4-10.2); Carbon Dioxide 28 mmol/L (22-30); Chloride 100 mmol/L (98-107); Estimated CRCL calculation 78 ml/min; Estimated Glomerular Filt Rate > 60; Glucose 96 mg/dL (65-110); Magnesium 1.7 mg/dL (1.6-2.3); Potassium 3.2 mmol/L (3.4-5.0); Sodium 132 mmol/L (137-145)
--- NOTE | 2023-04-27 06:38 | PC.NURSE ---
Pt went down for MRCP.
[2023-04-27 08:36] LABS: Glucose Point of Care 94 mg/dl (65-105)
--- NOTE | 2023-04-27 08:46 | PM.IMPN ---
Progress Note: A&P Assessment and Plan (1) Nausea & vomiting: Qualifiers: Vomiting type: unspecified Qualified Code(s): R11.2 - Nausea with vomiting, unspecified Code(s): R11.2 - Nausea with vomiting, unspecified Status: Acute (2) Pancreatic cancer: Code(s): C25.9 - Malignant neoplasm of pancreas, unspecified Status: Acute (3) Type 1 diabetes mellitus without complications: Code(s): E10.9 - Type 1 diabetes mellitus without complications Status: Acute Plan 62-year-old female recently diagnosed with stage IV pancreatic cancer and was started on chemotherapy received it on 04/22/2023 presented with persistent nausea and vomiting with diarrhea. She has underlying type 1 diabetes and takes insulin. Evaluation in the ED revealed normal cbc hyponatremia hypochloremia elevated liver enzymes with AST 817 ALT of 833 with alkaline phosphatase of 359 P 80 UA negative for infection. Admitted for IV fluids and supportive treatment. Improving. Continue IV fluids symptomatic treatment. Will use port for IV hydration therapy. Oncology has been consulted. Continue insulin for diabetes. Elevated liver enzymes: Right upper quadrant ultrasound with intrahepatic and extrahepatic biliary duct dilatation right and gallbladder distention new suspicious for obstruction by stone or mass. Will consult GI. Keep her on clear will do an MRI MRCP to delineate the cause. Regardless she may need ERCP for biliary stenting /extraction of stone . Started on Zosyn empirically. 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 She will need that stenting palliatively. GI on board. History of aortic stenosis Hyperlipidemia will hold statin due to elevated liver enzymes Type 1 diabetes will resume her insulin History of splenic artery aneurysm DVT prophylaxis: Lovenox Hypokalemia replace Subjective Date/time seen: 04/27/23 08:46 Interval history: 62-year-old female recently diagnosed with stage IV pancreatic cancer and was started on chemotherapy received it on 04/22/2023 presented with persistent nausea and vomiting with diarrhea. She has underlying type 1 diabetes and takes insulin. Evaluation in the ED revealed normal cbc hyponatremia hypochloremia elevated liver enzymes with AST 817 ALT of 833 with alkaline phosphatase of 359 P 80 UA negative for infection. Admitted for IV fluids and supportive treatment. Improving. Continue IV fluids symptomatic treatment. Will use port for IV hydration therapy. Oncology has been consulted. Continue insulin for diabetes. History of aortic stenosis Hyperlipidemia History of splenic artery aneurysm 04/26/2023: Feels a bit better. able to keep her down. No nausea. no abdominal pain. Remains AFib blood sugar trend reviewed. 04/27/2023: No overnight events reported. On clear liquid diet. Blood sugar trend reviewed. MRCP done and reviewed. LFTs trending down. Review of Systems Review of Systems: All systems reviewed & are unremarkable except as noted in HPI and below Exam Narrative: APPEARANCE: No apparent distress. Tired looking Head: atraumatic. EYES:? EOMI, PERRLA NOSE: Atraumatic NECK: Trachea midline RESPIRATORY: No increased rate of breathing, clear auscultation CARDIOVASCULAR: RRR, Port-A-Cath in place ABDOMINAL: Soft nontender MUSCULOSKELETAl: No obvious deformities NEURO: Alert. Moving 4/4 extremities SKIN:: Warm, dry. Normal color PSYCHIATRIC: Normal affect Objective Data Vital Signs Vital Signs: Vital Signs - 24 hr 04/26/23 14:00 04/26/23 10:50 04/26/23 19:17 Temperature 97.6 F 97.6 F Pulse Rate 75 75 Respiratory Rate 14 16 Blood Pressure 120/52 L 151/62 H Pulse Oximetry 98 95 Oxygen Delivery Room Air 04/26/23 21:05 04/27/23 04:34 Temperature 98.1 F Pulse Rate 86 Respiratory Rate 16 Blood Pressure 16
--- NOTE | 2023-04-27 09:36 | WPDGICN ---
Assessment and Plan Assessment and plan (1) Obstructive jaundice: Code(s): K83.1 - Obstruction of bile duct Status: Acute Assessment and Plan: Patient with obstructive jaundice. This appears to be from pancreatic cancer. Aunt also known to be metastatic to the lung. We will plan an ERCP in the hopes that a stent can be placed if this is not accomplished then transferred tertiary care center for ultimate therapy may be required. Patient is itching may be treated with Questran. Will give patient preventative antibiotics prior to the procedure with ciprofloxacin. (2) Pancreatic cancer: Code(s): C25.9 - Malignant neoplasm of pancreas, unspecified Status: Acute Assessment and Plan: Elevated CA-19-9 along with tissue from the lung lesion suggest this is metastatic pancreatic cancer. (3) Adenocarcinoma, lung: Code(s): C34.90 - Malignant neoplasm of unspecified part of unspecified bronchus or lung Status: Acute Assessment and Plan: Patient currently followed by Oncology. She appears to have lung metastases pancreatic primary. GI Consult Note Consult date/time: 04/27/23 09:36 Reason for consult: Obstructive jaundice HPI: Viji Angulo is a 62 year old female I am asked to see at the request of the hospitalist service because of obstructive jaundice. Patient reports that she was found to have metastatic disease to the lungs in February of this year. Biopsies the lung lesions were obtained and patient was found to have adenocarcinoma. Chemistry suggested this was metastatic from the pancreas. Imaging studies of the pancreas have been somewhat borderline with no specific mass described. There was a question of a mass in the tail. Patient began chemotherapy on Friday and Friday. At this time she became somewhat ill. She had significant nausea vomiting. Was admitted the hospital. During this interval of time her liver tests were noted to become markedly increased. Her CBC reveals pancytopenia. Ultrasound of the right upper quadrant revealed very mild borderline dilatation of the biliary tree. No specific masses were identified. An MRCP performed today suggest the patient has masses within the pancreas in apparent malignant stricture of the distal biliary tree is identified. Patient is somewhat unclear of the specifics of her condition. Case is discussed with both patient and her [id number] who is a nurse. Review of Systems Review of Systems: Review of systems noncontributory. [facility] Past Medical History Medical History (Updated 04/27/23 @ 09:40 by Shahbaz Waterman MD) BMI 22.0-22.9, adult Diabetic ketoacidosis without coma associated with type 1 diabetes mellitus Encounter for other screening for malignant neoplasm of breast Herpes zoster without complication Impacted cerumen of both ears Pancreatic cancer Splenic artery aneurysm Toenail torn away Type 1 diabetes mellitus without complications Family History Family History Father Hypertension Family history of chronic obstructive pulmonary disease Family history of congestive heart failure Mother Hypertension Family history of diabetes mellitus in first degree relative Sibling Hypertension Other Diabetes mellitus Social History Social History Smoking status: Never smoker Second hand tobacco smoke exposure: Yes Alcohol intake: never Substance use: never Substance use type: does not use Lack of Transportation: No Lack of Food: Never True Current Housing: I Have Housing Concerned About Future Housing: No Difficulty Paying Gas/Electric Bills: No Difficulty Paying for Meds: No Currently Unemployed: No Education: High School Diploma/GED Difficulty w/ Childcare or Family Care: No Living arrangements: alone Occupation/Education:
[2023-04-27 09:45] LABS: Bilirubin Direct 5.4 mg/dL (0-0.3); Bilirubin Indirect 2.5 mg/dL (0-1.1); Bilirubin,Total 9.8 mg/dL (0.2-1.3)
[2023-04-27 10:25] LABS: Hepatitis B Surface Antigen Negative (Negative)
[2023-04-27 10:30] LABS: HAV RESULT Negative (Negative); Hepatitis B Core IgM Result Negative (Negative)
[2023-04-27 10:42] LABS: Hepatitis C Virus Antibody Negative (Negative)
[2023-04-27] MEDS: POTASSIUM CHLORIDE 20 MEQ ER TABLET 40 MEQ PO (10:44)
[2023-04-27] MEDS: POTASSIUM CHLORIDE 10 MEQ ER TABLET PO (10:44)
[2023-04-27] MEDS: ASPIRIN 81 MG CHEWABLE TABLET PO (10:44)
[2023-04-27 10:45] LABS: Partial Thromboplastin Time 23.7 SECONDS (22.3-36.8); Prothrombin Time 13.5 Seconds (11.1-14.7)
[2023-04-27 11:38] LABS: Glucose Point of Care 110 mg/dl (65-105)
[2023-04-27 14:59] VITALS: BP 155/66; PULSE 80; RESP 14; TEMP 36.3; O2SAT 97
[2023-04-27 17:06] LABS: Glucose Point of Care 125 mg/dl (65-105)
[2023-04-27 20:26] LABS: Glucose Point of Care 210 mg/dl (65-105)
[2023-04-27 20:44] VITALS: BP 138/57; PULSE 73; RESP 17; TEMP 37; O2SAT 97
[2023-04-27] MEDS: INSULIN GLARGINE (*BKC) 100 UNITS/ML 16 UNITS SUB-Q (21:01)
[2023-04-28] VITALS (13 sets, daily range): BP systolic 140–171; BP diastolic 62–72; PULSE 75–95; RESP 11–18; TEMP 36.2–36.8; O2SAT 96–100
[2023-04-28] MEDS: PIPERACILLN/TAZ 3.375GM/NS50ML 3.375 GM/50 ML BAG IVPB ×4 (01:55→19:57)
[2023-04-28] MEDS: CENTRAL LINE FLUSH 10 ML IV PUSH ×6 (05:54→20:05)
[2023-04-28 05:56] LABS: Basophils Percent Auto 0.5 % (0.2-1.2); Eosinophils Absolute Auto 0.1 K/mm3 (0-0.3); Eosinophils Percent Auto 5.9 % (0-4.4); Hematocrit 28.5 % (37.0-47.0); Hemoglobin 9.5 g/dL (12.0-15.0); Immature Granulocyte Absolute 0.01 K/mm3 (0.00-0.031); Immature Granulocyte Percent A 0.5 % (0-0.5); Immature Platelet Fraction Pct 6.9 % (0.9-11.2); Lymphocytes Absolute Auto 0.39 K/mm3 (0.9-3.2); Lymphocytes Percent Auto 19.1 % (18.3-44.2); Mean Corpuscular HGB Conc 33.3 g/dl (32-36); Mean Corpuscular Hemoglobin 29.4 pg (26-34); Mean Corpuscular Volume 88.2 fl (80-100); Mean Platelet Volume 10.8 fl (7.4-10.4); Monocytes Percent Auto 1.5 % (2.6-8.5); Neutrophils Absolute Auto 1.5 K/mm3 (1.3-6.7); Neutrophils Percent Auto 72.5 % (45.5-73.1); Platelet Count Result 76 k/mm3 (150-375); Red Blood Count 3.23 M/mm3 (4.2-5.4); Red Cell Distribution Width 13.5 % (11.5-14.5)
[2023-04-28 06:05] LABS: Alanine Aminotransferase 454 U/L (6-35); Albumin Level 2.7 g/dL (3.5-5.1); Alkaline Phosphatase 294 U/L (38-126); Anion Gap 3 mmol/L (8-16); Aspartate Amino Transferase 279 U/L (14-36); Bilirubin,Total 8.7 mg/dL (0.2-1.3); Blood Urea Nitrogen 5 mg/dL (7-17); Calcium 8.1 mg/dL (8.4-10.2); Carbon Dioxide 27 mmol/L (22-30); Chloride 100 mmol/L (98-107); Estimated CRCL calculation 95 ml/min; Estimated Glomerular Filt Rate > 60; Glucose 147 mg/dL (65-110); Magnesium 1.6 mg/dL (1.6-2.3); Potassium 3.8 mmol/L (3.4-5.0); Sodium 130 mmol/L (137-145)
[2023-04-28] MEDS: PROCHLORPERAZINE EDISYLATE 10 MG/2 ML VIAL IV PUSH (06:35)
[2023-04-28 08:14] LABS: Glucose Point of Care 143 mg/dl (65-105)
[2023-04-28] MEDS: SODIUM CHLORIDE 0.9% IV 1,000 ML 100 ML IV CONT ×2 (09:34→19:58)
[2023-04-28] MEDS: HYDROmorphone HCL INJ (*CRX) 1 MG/ML SYR IV PUSH (10:09)
[2023-04-28 12:14] LABS: Glucose Point of Care 121 mg/dl (65-105)
--- NOTE | 2023-04-28 13:15 | PC.NURSE ---
To GI Lab via wheelchair.
[2023-04-28] MEDS: levoFLOXacin 500 MG/D5W 100 ML 500 MG/100 ML BAG 100 MG IVPB (13:40)
[2023-04-28] MEDS: LACTATED RINGERS 1,000 ML 150 ML IV CONT (13:40)
--- NOTE | 2023-04-28 13:46 | WPDANESEPPF ---
Anes - Initial Pre Proc Eval Procedure: Operation Date: 04/28/23 14:00 Proposed Procedures p Endoscopic Retro Cholangiopancreatogram - Shahbaz Waterman MD Date/Time: 04/28/23 13:46 Surgeon: Tati Beaver MD Pre Op Diagnosis: N/V of Chemo Patient Data Age: 62 Gender: F Height: 1.6 m Weight: 53.8 kg Last Vital Signs Temp 98.3 F 04/28/23 13:36 Pulse 95 04/28/23 13:36 Resp 18 04/28/23 13:36 BP 156/70 H 04/28/23 13:36 Pulse Ox 96 04/28/23 13:36 O2 Del Method Room Air 04/28/23 13:36 Allergies Allergy/AdvReac Type Severity Reaction Status Date / Time No Known Allergies Allergy Unknown Verified 04/28/23 13:35 Home Medications Medication Instructions Recorded Confirmed Type insulin glargine 100 unit/mL (3 21 unit subcut QAM 02/17/23 04/23/23 History mL) subcutaneous pen (Lantus Solostar U-100 Insulin) insulin lispro 100 unit/mL 1 sliding scale dose subcut 02/17/23 04/23/23 History subcutaneous pen USEASDIRECTD aspirin 81 mg chewable tablet 81 mg PO DAILY 03/19/23 04/23/23 History hydroxyzine HCl 25 mg tablet 25 mg PO TID PRN anxiety #30 tabs 04/02/23 04/23/23 Rx tramadol 50 mg tablet 50 mg PO BID PRN pain #60 tabs 04/02/23 04/23/23 Rx ondansetron 8 mg disintegrating 8 mg translingual Q6H PRN Nausea 04/11/23 04/23/23 History tablet And Vomiting prochlorperazine maleate 5 mg 5 mg PO Q8H PRN Nausea And Vomiting 04/18/23 04/23/23 History tablet (Compazine) potassium chloride 10 mEq 10 meq PO DAILY 04/22/23 04/23/23 History capsule,extended release rosuvastatin 20 mg tablet 20 mg PO DAILY 04/23/23 04/23/23 History Laboratory Tests 04/27/23 04/27/23 04/28/23 17:03 20:19 05:18 WBC 2.0 L K/mm3 (4.5-10.0) RBC 3.23 L M/mm3 (4.2-5.4) Hgb 9.5 L g/dL (12.0-15.0) Hct 28.5 L % (37.0-47.0) MCV 88.2 fl (80-100) MCH 29.4 pg (26-34) MCHC 33.3 g/dl (32-36) RDW 13.5 % (11.5-14.5) Plt Count 76 L k/mm3 (150-375) MPV 10.8 H fl (7.4-10.4) Immature Gran % (Auto) 0.5 % (0-0.5) Neut % (Auto) 72.5 % (45.5-73.1) Lymph % (Auto) 19.1 % (18.3-44.2) [place] % (Auto) 1.5 L % (2.6-8.5) Eos % (Auto) 5.9 H % (0-4.4) Baso % (Auto) 0.5 % (0.2-1.2) Lymph # (Auto) 0.39 L K/mm3 (0.9-3.2) [place] # (Auto) 0.0 L K/mm3 (0.1-0.6) Eos # (Auto) 0.1 K/mm3 (0-0.3) Baso # (Auto) 0.0 K/mm3 (0.0-0.1) Abs Immat Gran (auto) 0.01 K/mm3 (0.00-0.031) Absolute Neuts (auto) 1.5 K/mm3 (1.3-6.7) Absolute Nucleated RBC 0.0 K/mm3 (0.0-0.012) Nucleated RBC % 0.0 % (0.0-0.2) % Immature Plt Fraction 6.9 % (0.9-11.2) Sodium 130 L mmol/L (137-145) Potassium 3.8 mmol/L (3.4-5.0) Chloride 100 mmol/L (98-107) Carbon Dioxide 27 mmol/L (22-30) Anion Gap 3 L mmol/L (8-16) BUN 5 L mg/dL (7-17) Creatinine 0.40 L mg/dL (0.7-1.0) Estim Creat Clear Calc 95 ml/min Estimated GFR > 60 (59 - ) Glucose 147 H mg/dL (65-110) POC Capillary Glucose 125 H mg/dl 210 H mg/dl (65-105) (65-105) Calcium 8.1 L mg/dL (8.4-10.2) Magnesium 1.6 mg/dL (1.6-2.3) Total Bilirubin 8.7 H mg/dL (0.2-1.3) AST 279 H U/L (14-36) ALT 454 H U/L (6-35) Alkaline Phosphatase 294 H U/L (38-126) Total Protein 5.0 L g/dL (6.3-8.2) Albumin 2.7 L g/dL (3.5-5.1) 04/28/23 04/28/23 08:11 12:08 WBC RBC Hgb Hct MCV MCH MCHC RDW Plt Count MPV Immature Gran % (Auto) Neut % (Auto) Lymph % (Auto) [place] % (Auto) Eos % (Auto)
[2023-04-28 15:21] LABS: Glucose Point of Care 127 mg/dl (65-105)
--- NOTE | 2023-04-28 15:22 | PM.IMPN ---
Progress Note: A&P Assessment and Plan (1) Nausea & vomiting: Qualifiers: Vomiting type: unspecified Qualified Code(s): R11.2 - Nausea with vomiting, unspecified Code(s): R11.2 - Nausea with vomiting, unspecified Status: Acute (2) Pancreatic cancer: Code(s): C25.9 - Malignant neoplasm of pancreas, unspecified Status: Acute (3) Type 1 diabetes mellitus without complications: Code(s): E10.9 - Type 1 diabetes mellitus without complications Status: Acute Plan 62-year-old female recently diagnosed with stage IV pancreatic cancer and was started on chemotherapy received it on 04/22/2023 presented with persistent nausea and vomiting with diarrhea. She has underlying type 1 diabetes and takes insulin. Evaluation in the ED revealed normal cbc hyponatremia hypochloremia elevated liver enzymes with AST 817 ALT of 833 with alkaline phosphatase of 359 P 80 UA negative for infection. Admitted for IV fluids and supportive treatment. Improving. Continue IV fluids symptomatic treatment. Will use port for IV hydration therapy. Oncology has been consulted. Continue insulin for diabetes. Elevated liver enzymes: Right upper quadrant ultrasound with intrahepatic and extrahepatic biliary duct dilatation right and gallbladder distention new suspicious for obstruction by stone or mass. Will consult GI. Keep her on clear will do an MRI MRCP to delineate the cause. Regardless she may need ERCP for biliary stenting /extraction of stone . Started on Zosyn empirically. 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 She will need that stenting palliatively. GI on board. Attempted ERCP today. but unsuccessful. referral to tertiary center advised. discussed with [facility]. Awaiting a call back from them History of aortic stenosis Hyperlipidemia will hold statin due to elevated liver enzymes Type 1 diabetes will resume her insulin History of splenic artery aneurysm DVT prophylaxis: Lovenox Hypokalemia replace Subjective Date/time seen: 04/28/23 15:22 Interval history: 62-year-old female recently diagnosed with stage IV pancreatic cancer and was started on chemotherapy received it on 04/22/2023 presented with persistent nausea and vomiting with diarrhea. She has underlying type 1 diabetes and takes insulin. Evaluation in the ED revealed normal cbc hyponatremia hypochloremia elevated liver enzymes with AST 817 ALT of 833 with alkaline phosphatase of 359 P 80 UA negative for infection. Admitted for IV fluids and supportive treatment. Improving. Continue IV fluids symptomatic treatment. Will use port for IV hydration therapy. Oncology has been consulted. Continue insulin for diabetes. History of aortic stenosis Hyperlipidemia History of splenic artery aneurysm 04/26/2023: Feels a bit better. able to keep her down. No nausea. no abdominal pain. Remains AFib blood sugar trend reviewed. 04/27/2023: No overnight events reported. On clear liquid diet. Blood sugar trend reviewed. MRCP done and reviewed. LFTs trending down. 04/28/2023: no overnight events. taken to the ERCP which was attempted but unsuccessful. referral to tertiary center suggested. Review of Systems Review of Systems: All systems reviewed & are unremarkable except as noted in HPI and below Exam Narrative: APPEARANCE: No apparent distress. Tired looking Head: atraumatic. EYES:? EOMI, PERRLA NOSE: Atraumatic NECK: Trachea midline RESPIRATORY: No increased rate of breathing, clear auscultation CARDIOVASCULAR: RRR, Port-A-Cath in place ABDOMINAL: Soft nontender MUSCULOSKELETAl: No obvious deformities NEURO: Alert. Moving 4/4 extremities SKIN:: Warm, dry. Normal color PSYCHIATRIC: Normal affect Objective Data Vital Signs Vital Signs: Vital Signs - 24 hr 04/27/23 19:59 04/27/23 20:44
--- NOTE | 2023-04-28 16:00 | PC.NURSE ---
Return from GI Lab via stretcher.
[2023-04-28 17:23] LABS: Glucose Point of Care 137 mg/dl (65-105)
[2023-04-28] MEDS: INSULIN GLARGINE (*BKC) 100 UNITS/ML 16 UNITS SUB-Q (20:02)
[2023-04-28 20:07] LABS: Glucose Point of Care 194 mg/dl (65-105)
[2023-04-29] MEDS: PIPERACILLN/TAZ 3.375GM/NS50ML 3.375 GM/50 ML BAG IVPB ×4 (01:55→19:41)
[2023-04-29 05:06] VITALS: BP 164/65; PULSE 95; RESP 17; TEMP 36.8; O2SAT 95
[2023-04-29 08:04] LABS: Glucose Point of Care 108 mg/dl (65-105)
[2023-04-29] MEDS: SODIUM CHLORIDE 0.9% IV 1,000 ML 100 ML IV CONT ×2 (08:57→19:42)
[2023-04-29] MEDS: POTASSIUM CHLORIDE 10 MEQ ER TABLET PO (08:58)
[2023-04-29] MEDS: ASPIRIN 81 MG CHEWABLE TABLET PO (08:58)
[2023-04-29 08:59] VITALS: RESP 18; O2SAT 95
[2023-04-29] MEDS: ENOXAPARIN 40 MG/0.4 ML SYRINGE SUB-Q (08:59)
[2023-04-29 09:25] LABS: Eosinophils Absolute Auto 0.1 K/mm3 (0-0.3); Eosinophils Percent Auto 3.9 % (0-4.4); Hematocrit 29.7 % (37.0-47.0); Hemoglobin 9.9 g/dL (12.0-15.0); Immature Granulocyte Absolute 0.02 K/mm3 (0.00-0.031); Immature Platelet Fraction Pct 7.2 % (0.9-11.2); Lymphocytes Absolute Auto 0.52 K/mm3 (0.9-3.2); Lymphocytes Percent Auto 25.1 % (18.3-44.2); Mean Corpuscular HGB Conc 33.3 g/dl (32-36); Mean Corpuscular Hemoglobin 29.7 pg (26-34); Mean Corpuscular Volume 89.2 fl (80-100); Mean Platelet Volume 10.7 fl (7.4-10.4); Neutrophils Absolute Auto 1.4 K/mm3 (1.3-6.7); Platelet Count Result 74 k/mm3 (150-375); Red Blood Count 3.33 M/mm3 (4.2-5.4); Red Cell Distribution Width 13.5 % (11.5-14.5); White Blood Count 2.1 K/mm3 (4.5-10.0)
[2023-04-29 09:37] LABS: Alanine Aminotransferase 383 U/L (6-35); Albumin Level 2.9 g/dL (3.5-5.1); Alkaline Phosphatase 295 U/L (38-126); Anion Gap 6 mmol/L (8-16); Aspartate Amino Transferase 204 U/L (14-36); Bilirubin,Total 4.9 mg/dL (0.2-1.3); Blood Urea Nitrogen 5 mg/dL (7-17); Calcium 8.3 mg/dL (8.4-10.2); Carbon Dioxide 26 mmol/L (22-30); Chloride 100 mmol/L (98-107); Estimated CRCL calculation 95 ml/min; Estimated Glomerular Filt Rate > 60; Glucose 108 mg/dL (65-110); Magnesium 1.6 mg/dL (1.6-2.3); Potassium 3.3 mmol/L (3.4-5.0); Sodium 132 mmol/L (137-145)
--- NOTE | 2023-04-29 10:36 | PCNFU ---
Nutrition Follow-Up Complete: Severe Protein Calorie Malnutrition related to inadequate protein-energy intake with increased protein-energy needs in setting of chronic disease(pancreatic cancer) as evidenced by minimal oral intake due to vomiting and nausea/cancer and 12% weight loss(15 ibs) in the past past 2 months. Goal: Adequate Intake of at least 75% of meals/supplements. Patient has limited progress towards goal. We will continue current goal. Pt current nutrition is Clear liquids. Last recorded weight is 53.8 kg, no new weight to report. Bowel Motility:+BM reported 04/29 Labs Reviewed:Cr 0.4,BUN 5, Glu 147, Na 130, Hct 28.5,Hgb 9.5 Meds Noted:Lantus, Lispro, Zofran, Zosyn, NS Skin: WNL Additional Notes:Patient had ERCP 04/28 with plans for transfer to tertiary hospital. Patient remains on clear liquid diet. Oral intake with liquids 20-100%. Patient states she has been tolerating liquids. Discussed Ensure Clear with patient today, MD orders to add ensure on trays providing an additional 240 kcals and 8 gms protein. Will monitor weight, labs, skin, oral intake every 5 days.
[2023-04-29 11:50] LABS: Glucose Point of Care 114 mg/dl (65-105)
--- NOTE | 2023-04-29 12:54 | WPDGIPROGNO ---
Subjective Date/time seen: 04/29/23 12:54 Objective Data Vital Signs Vital Signs: Vital Signs - 24 hr 04/28/23 13:36 04/28/23 14:47 04/28/23 14:57 Temperature 98.3 F 97.7 F Pulse Rate 95 75 75 Respiratory Rate 18 12 12 Blood Pressure 156/70 H 140/64 146/64 H Pulse Oximetry 96 100 100 Oxygen Delivery Room Air Simple Face Mask Simple Face Mask Oxygen Flow Rate 6 6 04/28/23 15:07 04/28/23 15:17 04/28/23 15:27 Temperature 97.1 F L Pulse Rate 75 77 76 Respiratory Rate 11 L 16 12 Blood Pressure 151/62 H 167/70 H 170/72 H Pulse Oximetry 100 100 98 Oxygen Delivery Simple Face Mask Room Air Room Air Oxygen Flow Rate 4 04/28/23 15:37 04/28/23 15:47 04/28/23 16:00 Temperature 97.5 F L 97.3 F L Pulse Rate 75 77 78 Respiratory Rate 13 16 15 Blood Pressure 171/69 H 171/69 H 151/63 H Pulse Oximetry 100 98 97 Oxygen Delivery Room Air Room Air Oxygen Flow Rate 04/28/23 20:21 04/29/23 05:06 04/29/23 08:59 Temperature 97.4 F L 98.2 F Pulse Rate 94 95 Respiratory Rate 17 17 18 Blood Pressure 160/66 H 164/65 H Pulse Oximetry 98 95 95 Oxygen Delivery Room Air Oxygen Flow Rate Intake/Output Intake/Output: Intake & Output 04/26/23 04/27/23 04/28/23 04/29/23 23:59 23:59 23:59 23:59 Intake Total 3350 4690 2470 1680 Output Total 2150 1900 2200 Balance 1200 2790 270 1680 Meds/Results Medications: Active Medications Generic Name Dose Route Start Last Admin Trade Name Freq PRN Reason Stop Dose Admin Aspirin 81 mg 04/26/23 09:00 04/29/23 08:58 Aspirin 81 Mg Chewable Tablet PO 81 mg DAILY EBER Administration Dextrose 12.5 gm 04/24/23 11:21 Dextrose 50% 25 Gm/50 Ml Syringe IV PUSH PRN PRN Hypoglycemia Protocol Enoxaparin Sodium 40 mg 04/25/23 09:00 04/29/23 08:59 Enoxaparin 40 Mg/0.4 Ml Syringe SUB-Q 40 mg DAILY EBER Administration Glucagon 1 mg 04/24/23 11:21 Glucagon For Inj 1 Mg Vial IM PRN PRN Hypoglycemia Protocol Glucose 15 gm 04/24/23 11:21 Glucose Oral Gel 15 Gm Of Glucse In 37.5 Gm Tube PO PRN PRN Hypoglycemia Protocol Heparin Sodium (Beef Lung) 50 units 04/24/23 07:20 04/27/23 05:35 Heparin Flush 50 Units/5 Ml Syringe IV PUSH 50 units PRN PRN Administration after blood draws Heparin Sodium (Beef Lung) 50 units 04/24/23 07:20 Heparin Flush 50 Units/5 Ml Syringe IV PUSH PRN PRN after intermittent infusion Heparin Sodium (Beef Lung) 50 units 04/24/23 09:00 04/29/23 08:58 Heparin Flush 50 Units/5 Ml Syringe IV PUSH Not Given QAM EBER Heparin Sodium (Porcine) 500 units 04/24/23 07:20 Heparin Sodium Lock Flush 500 Units/5 Ml Syringe IV PUSH PRN PRN see comments below Hydromorphone HCl 1 mg 04/23/23 23:16 04/28/23 10:09 Hydromorphone Hcl Inj (*Crx) 1 Mg/Ml Syr IV PUSH 1 mg Q3H PRN Administration Pain Rated 7-10 Hydroxyzine HCl 25 mg 04/25/23 17:17 Hydroxyzine Hcl 25 Mg Tablet PO TID PRN anxiety Dextrose 1,000 mls @ 100 mls/hr 04/24/23 11:21 Dextrose 5% 1,000 Ml IVPB PRN PRN Hypoglycemia Protocol Sodium Chloride 1,000 mls @ 100 mls/hr 04/24/23 11:25 04/29/23 09:25 Normal Saline Iv IV CONT 100 mls/hr .Q10H EBER Infusion Piperacillin/Tazobactam/Dextrose 3.375 gm in 50 mls @ 100 mls/hr 04/26/23 14:00 04/29/23 09:25 Zosyn 3.375 Gm/Ns 50 Ml IVPB Infused Q6H EBER Infusion Insulin Aspart 3 - 6 units 04/24/23 12:00 04/29/23 11:51 Insulin Aspart (*Bkc) 100 Units/Ml SUB-Q Not Given [facility] Protocol Insulin Glargine 16 units 04/25/23 19:03 04/28/23 20:02 Insulin Glargine (*Bkc) 100 Units/Ml SUB-Q 16 units HS EBER Administration Potassium Chloride 10 meq 04/26/23 09:00 04/29/23 08:58 Potassium Chloride 10 Meq Er Tablet PO 10 meq DAILY EBER Administration Prochlorperazine Edisylate 10 mg 04/27/23 16:18 04/28/23 06:35 Prochlorp
--- NOTE | 2023-04-29 12:55 | WPDGIPROGNO ---
Progress Note: A&P Assessment and Plan (1) Obstructive jaundice: Code(s): K83.1 - Obstruction of bile duct Status: Acute Assessment and Plan: Patient with obstructive jaundice. Imaging studies suggest pancreatic cancer. She has metastases to the liver and lung. Attempts to relieve this with ERCP yesterday were not fruitful. However today but total bilirubin has declined after attempts at ERCP yesterday. Patient awaiting transfer to tertiary care center for flat decompression of the biliary tree. She may need another attempted stent placement if at all possible. Patient may return need to remain on prophylactic antibiotics as she may be prone to infection until biliary tree is decompressed. (2) Pancreatic cancer: Code(s): C25.9 - Malignant neoplasm of pancreas, unspecified Status: Acute Assessment and Plan: Oncology following patient. Dr. Robin currently managing patient she received 1 episode of treatment prior to admission to the hospital. (3) Adenocarcinoma, lung: Code(s): C34.90 - Malignant neoplasm of unspecified part of unspecified bronchus or lung Status: Acute Subjective Date/time seen: 04/29/23 12:55 Interval history: Patient alert and fairly comfortable this morning. Denies significant abdominal pain. She remains afebrile. Review of Systems Review of Systems: Review of systems noncontributory. Exam Narrative: Physical exam reveals patient be alert. Vital signs stable. She is an afebrile. HEENT exam reveals some scleral icterus. Lungs are clear. Heart without murmur. Abdomen bowel sounds present soft nontender. Objective Data Vital Signs Vital Signs: Vital Signs - 24 hr 04/28/23 13:36 04/28/23 14:47 04/28/23 14:57 Temperature 98.3 F 97.7 F Pulse Rate 95 75 75 Respiratory Rate 18 12 12 Blood Pressure 156/70 H 140/64 146/64 H Pulse Oximetry 96 100 100 Oxygen Delivery Room Air Simple Face Mask Simple Face Mask Oxygen Flow Rate 6 6 04/28/23 15:07 04/28/23 15:17 04/28/23 15:27 Temperature 97.1 F L Pulse Rate 75 77 76 Respiratory Rate 11 L 16 12 Blood Pressure 151/62 H 167/70 H 170/72 H Pulse Oximetry 100 100 98 Oxygen Delivery Simple Face Mask Room Air Room Air Oxygen Flow Rate 4 04/28/23 15:37 04/28/23 15:47 04/28/23 16:00 Temperature 97.5 F L 97.3 F L Pulse Rate 75 77 78 Respiratory Rate 13 16 15 Blood Pressure 171/69 H 171/69 H 151/63 H Pulse Oximetry 100 98 97 Oxygen Delivery Room Air Room Air Oxygen Flow Rate 04/28/23 20:21 04/29/23 05:06 04/29/23 08:59 Temperature 97.4 F L 98.2 F Pulse Rate 94 95 Respiratory Rate 17 17 18 Blood Pressure 160/66 H 164/65 H Pulse Oximetry 98 95 95 Oxygen Delivery Room Air Oxygen Flow Rate Intake/Output Intake/Output: Intake & Output 04/26/23 04/27/23 04/28/23 04/29/23 23:59 23:59 23:59 23:59 Intake Total 3350 4690 2470 1680 Output Total 2150 1900 2200 Balance 1200 2790 270 1680 Meds/Results Medications: Active Medications Generic Name Dose Route Start Last Admin Trade Name Freq PRN Reason Stop Dose Admin Aspirin 81 mg 04/26/23 09:00 04/29/23 08:58 Aspirin 81 Mg Chewable Tablet PO 81 mg DAILY EBER Administration Dextrose 12.5 gm 04/24/23 11:21 Dextrose 50% 25 Gm/50 Ml Syringe IV PUSH PRN PRN Hypoglycemia Protocol Enoxaparin Sodium 40 mg 04/25/23 09:00 04/29/23 08:59 Enoxaparin 40 Mg/0.4 Ml Syringe SUB-Q 40 mg DAILY EBER Administration Glucagon 1 mg 04/24/23 11:21 Glucagon For Inj 1 Mg Vial IM PRN PRN Hypoglycemia Protocol Glucose 15 gm 04/24/23 11:21 Glucose Oral Gel 15 Gm Of Glucse In 37.5 Gm Tube PO PRN PRN Hypoglycemia Protocol Heparin Sodium (Beef Lung) 50 units 04/24/23 07:20 04/27/23 05:35 Heparin Flush 50 Units/5 Ml Syringe IV PUSH 50 units PRN PRN Administration after blood draws Heparin Sodium (Beef Lung) 50
--- NOTE | 2023-04-29 13:15 | PM.IMPN ---
Progress Note: A&P Assessment and Plan (1) Nausea & vomiting: Qualifiers: Vomiting type: unspecified Qualified Code(s): R11.2 - Nausea with vomiting, unspecified Code(s): R11.2 - Nausea with vomiting, unspecified Status: Acute (2) Pancreatic cancer: Code(s): C25.9 - Malignant neoplasm of pancreas, unspecified Status: Acute (3) Type 1 diabetes mellitus without complications: Code(s): E10.9 - Type 1 diabetes mellitus without complications Status: Acute Plan 62-year-old female recently diagnosed with stage IV pancreatic cancer and was started on chemotherapy received it on 04/22/2023 presented with persistent nausea and vomiting with diarrhea. She has underlying type 1 diabetes and takes insulin. Evaluation in the ED revealed normal cbc hyponatremia hypochloremia elevated liver enzymes with AST 817 ALT of 833 with alkaline phosphatase of 359 P 80 UA negative for infection. Admitted for IV fluids and supportive treatment. Improving. Continue IV fluids symptomatic treatment. Will use port for IV hydration therapy. Oncology has been consulted. Continue insulin for diabetes. Elevated liver enzymes: Right upper quadrant ultrasound with intrahepatic and extrahepatic biliary duct dilatation right and gallbladder distention new suspicious for obstruction by stone or mass. Will consult GI. Keep her on clear will do an MRI MRCP to delineate the cause. Regardless she may need ERCP for biliary stenting /extraction of stone . Started on Zosyn empirically. 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 She will need that stenting palliatively. GI on board. Attempted ERCP 04/28/2023. but unsuccessful. referral to tertiary center advised. discussed with [facility] and accepted. Awaiting bed placement. LFTs are currently improving. Maintain Zosyn. Advance diet to full liquid diet History of aortic stenosis Hyperlipidemia will hold statin due to elevated liver enzymes Type 1 diabetes will resume her insulin History of splenic artery aneurysm DVT prophylaxis: Lovenox Hypokalemia replace Subjective Date/time seen: 04/29/23 13:15 Interval history: 62-year-old female recently diagnosed with stage IV pancreatic cancer and was started on chemotherapy received it on 04/22/2023 presented with persistent nausea and vomiting with diarrhea. She has underlying type 1 diabetes and takes insulin. Evaluation in the ED revealed normal cbc hyponatremia hypochloremia elevated liver enzymes with AST 817 ALT of 833 with alkaline phosphatase of 359 P 80 UA negative for infection. Admitted for IV fluids and supportive treatment. Improving. Continue IV fluids symptomatic treatment. Will use port for IV hydration therapy. Oncology has been consulted. Continue insulin for diabetes. History of aortic stenosis Hyperlipidemia History of splenic artery aneurysm 04/26/2023: Feels a bit better. able to keep her down. No nausea. no abdominal pain. Remains AFib blood sugar trend reviewed. 04/27/2023: No overnight events reported. On clear liquid diet. Blood sugar trend reviewed. MRCP done and reviewed. LFTs trending down. 04/28/2023: no overnight events. taken to the ERCP which was attempted but unsuccessful. referral to tertiary center suggested. 04/29/2023: Still feels nauseated but better. Denies any abdominal pain. No overnight events awaiting bed placement at [facility] Review of Systems Review of Systems: All systems reviewed & are unremarkable except as noted in HPI and below Exam Narrative: APPEARANCE: No apparent distress. Tired looking Head: atraumatic. EYES:? EOMI, PERRLA NOSE: Atraumatic NECK: Trachea midline RESPIRATORY: No increased rate of breathing, clear auscultation CARDIOVASCULAR: RRR, Port-A-Cath in place ABDOMINAL: Soft nontender MUSCULOSKELETAl: No obvious deformities NE
[2023-04-29] MEDS: CENTRAL LINE FLUSH 10 ML IV PUSH ×4 (13:40→19:45)
[2023-04-29 14:00] VITALS: BP 149/61; PULSE 93; RESP 14; TEMP 36.4; O2SAT 95
--- NOTE | 2023-04-29 14:07 | WPDANESPN ---
Anes - Prog Note Post-Op Date/Time: 04/29/23 14:07 Cardiovascular status: normal Respiratory status: normal Airway patency: baseline Mental status: baseline Post-Op hydration status: normal Vital Signs: Last Vital Signs Temp 36.8 C 04/29/23 05:06 Pulse 95 04/29/23 05:06 Resp 18 04/29/23 08:59 BP 164/65 H 04/29/23 05:06 Pulse Ox 95 04/29/23 08:59 O2 Del Method Room Air 04/29/23 08:59 O2 Flow Rate 4 04/28/23 15:07 Pain Score (VAS): 07/19 I/O: Intake & Output 04/28/23 04/29/23 04/29/23 23:59 07:59 15:59 Intake Total 3707 001 8344 Output Total 500 Balance 343 117 2327 Laboratory Tests 04/29/23 08:58 04/29/23 08:58 04/28/23 04/28/23 04/28/23 15:17 17:15 19:59 WBC RBC Hgb Hct MCV MCH MCHC RDW Plt Count MPV Immature Gran % (Auto) Neut % (Auto) Lymph % (Auto) [place] % (Auto) Eos % (Auto) Baso % (Auto) Lymph # (Auto) [place] # (Auto) Eos # (Auto) Baso # (Auto) Abs Immat Gran (auto) Absolute Neuts (auto) Absolute Nucleated RBC Nucleated RBC % % Immature Plt Fraction Sodium Potassium Chloride Carbon Dioxide Anion Gap BUN Creatinine Estim Creat Clear Calc Estimated GFR Glucose POC Capillary Glucose 127 H 137 H 194 H Calcium Magnesium Total Bilirubin AST ALT Alkaline Phosphatase Total Protein Albumin 04/29/23 04/29/23 04/29/23 08:01 08:58 11:47 WBC 2.1 L RBC 3.33 L Hgb 9.9 L Hct 29.7 L MCV 89.2 MCH 29.7 MCHC 33.3 RDW 13.5 Plt Count 74 L MPV 10.7 H Immature Gran % (Auto) 1.0 H Neut % (Auto) 69.0 Lymph % (Auto) 25.1 [place] % (Auto) 1.0 L Eos % (Auto) 3.9 Baso % (Auto) 0.0 L Lymph # (Auto) 0.52 L [place] # (Auto) 0.0 L Eos # (Auto) 0.1 Baso # (Auto) 0.0 Abs Immat Gran (auto) 0.02 Absolute Neuts (auto) 1.4 Absolute Nucleated RBC 0.0 Nucleated RBC % 0.0 % Immature Plt Fraction 7.2 Sodium 132 L Potassium 3.3 L Chloride 100 Carbon Dioxide 26 Anion Gap 6 L BUN 5 L Creatinine 0.40 L Estim Creat Clear Calc 95 Estimated GFR > 60 Glucose 108 POC Capillary Glucose 108 H 114 H Calcium 8.3 L Magnesium 1.6 Total Bilirubin 4.9 H AST 204 H ALT 383 H Alkaline Phosphatase 295 H Total Protein 6.0 L Albumin 2.9 L Microbiology 04/23/23 23:46 Blood Blood Culture - Final 04/23/23 23:41 Blood Blood Culture - Final Post-procedural complaints: none Patient Feedback: Patient satisfied with anesthetic care.
[2023-04-29] MEDS: PROCHLORPERAZINE EDISYLATE 10 MG/2 ML VIAL IV PUSH (16:37)
[2023-04-29 17:06] LABS: Glucose Point of Care 266 mg/dl (65-105)
[2023-04-29] MEDS: INSULIN ASPART (*BKC) 100 UNITS/ML SUB-Q (17:14)
[2023-04-29] MEDS: INSULIN GLARGINE (*BKC) 100 UNITS/ML 16 UNITS SUB-Q (19:46)
[2023-04-29 19:53] LABS: Glucose Point of Care 212 mg/dl (65-105)
[2023-04-29 22:00] VITALS: BP 150/64; PULSE 95; RESP 16; TEMP 36.4; O2SAT 98
[2023-04-30] MEDS: PIPERACILLN/TAZ 3.375GM/NS50ML 3.375 GM/50 ML BAG IVPB ×4 (01:20→20:10)
[2023-04-30] MEDS: PROCHLORPERAZINE EDISYLATE 10 MG/2 ML VIAL IV PUSH ×3 (01:21→17:44)
[2023-04-30] MEDS: SODIUM CHLORIDE 0.9% IV 1,000 ML 100 ML IV CONT ×2 (05:24→20:10)
[2023-04-30] MEDS: CENTRAL LINE FLUSH 10 ML IV PUSH ×4 (05:26→20:15)
[2023-04-30 06:00] VITALS: BP 146/67; PULSE 98; RESP 16; TEMP 36.3; O2SAT 97
[2023-04-30 06:14] LABS: Basophils Percent Auto 0.7 % (0.2-1.2); Eosinophils Absolute Auto 0.1 K/mm3 (0-0.3); Eosinophils Percent Auto 7.2 % (0-4.4); Hematocrit 25.4 % (37.0-47.0); Hemoglobin 8.4 g/dL (12.0-15.0); Immature Platelet Fraction Pct 9.4 % (0.9-11.2); Lymphocytes Absolute Auto 0.46 K/mm3 (0.9-3.2); Lymphocytes Percent Auto 33.1 % (18.3-44.2); Mean Corpuscular HGB Conc 33.1 g/dl (32-36); Mean Corpuscular Hemoglobin 29.3 pg (26-34); Mean Corpuscular Volume 88.5 fl (80-100); Mean Platelet Volume 11.2 fl (7.4-10.4); Monocytes Percent Auto 1.4 % (2.6-8.5); Neutrophils Absolute Auto 0.8 K/mm3 (1.3-6.7); Neutrophils Percent Auto 57.6 % (45.5-73.1); Platelet Count Result 45 k/mm3 (150-375); Red Blood Count 2.87 M/mm3 (4.2-5.4); Red Cell Distribution Width 13.4 % (11.5-14.5)
[2023-04-30 06:39] LABS: Alanine Aminotransferase 300 U/L (6-35); Albumin Level 2.6 g/dL (3.5-5.1); Alkaline Phosphatase 212 U/L (38-126); Anion Gap 8 mmol/L (8-16); Aspartate Amino Transferase 133 U/L (14-36); Bilirubin,Total 3.2 mg/dL (0.2-1.3); Blood Urea Nitrogen 4 mg/dL (7-17); Calcium 7.9 mg/dL (8.4-10.2); Carbon Dioxide 25 mmol/L (22-30); Chloride 101 mmol/L (98-107); Estimated CRCL calculation 95 ml/min; Estimated Glomerular Filt Rate > 60; Glucose 104 mg/dL (65-110); Magnesium 1.5 mg/dL (1.6-2.3); Potassium 2.8 mmol/L (3.4-5.0); Sodium 134 mmol/L (137-145)
[2023-04-30 06:44] LABS: White Blood Count 1.4 K/mm3 (4.5-10.0)
[2023-04-30] MEDS: ASPIRIN 81 MG CHEWABLE TABLET PO (08:23)
[2023-04-30] MEDS: POTASSIUM CHLORIDE 10 MEQ ER TABLET PO (08:23)
[2023-04-30] MEDS: ENOXAPARIN 40 MG/0.4 ML SYRINGE SUB-Q (08:23)
[2023-04-30 08:47] LABS: Glucose Point of Care 81 mg/dl (65-105)
--- NOTE | 2023-04-30 09:21 | PM.IMPN ---
Progress Note: A&P Assessment and Plan (1) Nausea & vomiting: Qualifiers: Vomiting type: unspecified Qualified Code(s): R11.2 - Nausea with vomiting, unspecified Code(s): R11.2 - Nausea with vomiting, unspecified Status: Acute (2) Pancreatic cancer: Code(s): C25.9 - Malignant neoplasm of pancreas, unspecified Status: Acute (3) Type 1 diabetes mellitus without complications: Code(s): E10.9 - Type 1 diabetes mellitus without complications Status: Acute Plan 62-year-old female recently diagnosed with stage IV pancreatic cancer and was started on chemotherapy received it on 04/22/2023 presented with persistent nausea and vomiting with diarrhea. Evaluation in the ED revealed normal cbc hyponatremia hypochloremia elevated liver enzymes with AST 817 ALT of 833 with alkaline phosphatase of 359 P 80 UA negative for infection. Admitted for IV fluids and supportive treatment. Improving. Continue IV fluids symptomatic treatment. Will use port for IV hydration therapy. Oncology has been consulted. Pancytopenia Patient is afebrile, blood pressure is stable No sign of infection or obvious bleeding numbers of white blood cell, hemoglobin and platelet are trending down Likely secondary to chemotherapy Monitor CBC Elevated liver enzymes: Right upper quadrant ultrasound with intrahepatic and extrahepatic biliary duct dilatation right and gallbladder distention new suspicious for obstruction by stone or mass. consult GI. MRCP ?Ill-defined masses in the pancreas, consistent with primary adenocarcinoma and metastatic disease. 2. 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 3. Liver masses with worsening from 03/17/23, consistent with metastatic disease. Lung nodules, consistent with metastatic disease.e. S/P ERCP 04/30 Per GI: ?Patient with obstructive jaundice.? Imaging studies suggest pancreatic cancer.? She has metastases to the liver and lung.? Attempts to relieve this with ERCP yesterday were not fruitful.? Patient awaiting transfer to tertiary care center for flat decompression of the biliary tree.? Started on Zosyn empirically. discussed with lolis and accepted. Awaiting bed placement. LFTs are currently improving. Maintain Zosyn. Advance diet to full liquid diet History of aortic stenosis Hyperlipidemia will hold statin due to elevated liver enzymes Type 1 diabetes will resume her insulin History of splenic artery aneurysm Type 1 diabetes Continue insulin for diabetes. DVT prophylaxis: Lovenox Hypokalemia replace Subjective Date/time seen: 04/30/23 09:21 Interval history: stage IV pancreatic cancer and was started on chemotherapy received it on 04/22/2023 presented with persistent nausea and vomiting with diarrhea. Patient feels better today, intermittent nausea without vomiting. Labs reviewed, pancytopenia, numbers of white blood cell, hemoglobin and platelet are trending down Exam Narrative: APPEARANCE: No apparent distress. Tired looking Head: atraumatic. EYES:? EOMI, PERRLA NOSE: Atraumatic NECK: Trachea midline RESPIRATORY: No increased rate of breathing, clear auscultation CARDIOVASCULAR: RRR, Port-A-Cath in place ABDOMINAL: Soft nontender MUSCULOSKELETAl: No obvious deformities NEURO: Alert. Moving 4/4 extremities SKIN:: Warm, dry. Normal color PSYCHIATRIC: Normal affect Objective Data Vital Signs Vital Signs: Vital Signs - 24 hr 04/29/23 14:00 04/29/23 20:00 04/29/23 22:00 Temperature 97.6 F 97.6 F Pulse Rate 93 95 Respiratory Rate 14 16 Blood Pressure 149/61 H 150/64 H Pulse Oximetry 95 98 Oxygen Delivery Room Air 04/30/23 06:00 Temperature 97.3 F L Pulse Rate 98 Respiratory Rate 16 Blood Pressure 146/67 H Pulse Oximetry 97 Oxygen Delivery Intake/Output Intake/Output: Intake & Output 04/27/23
[2023-04-30] MEDS: KCL 40 MEQ/WATER 100 ML 100 ML 25 ML IVPB (09:43)
[2023-04-30 12:27] LABS: Glucose Point of Care 137 mg/dl (65-105)
[2023-04-30 14:22] VITALS: BP 154/68; PULSE 93; RESP 16; TEMP 36.8; O2SAT 96
[2023-04-30 17:15] LABS: Glucose Point of Care 190 mg/dl (65-105)
[2023-04-30 20:06] VITALS: BP 157/69; PULSE 87; RESP 18; TEMP 36.7; O2SAT 97
[2023-04-30] MEDS: INSULIN GLARGINE (*BKC) 100 UNITS/ML 16 UNITS SUB-Q (20:10)
[2023-04-30 20:37] LABS: Glucose Point of Care 270 mg/dl (65-105)
[2023-05-01] MEDS: PIPERACILLN/TAZ 3.375GM/NS50ML 3.375 GM/50 ML BAG IVPB ×3 (01:20→13:30)
[2023-05-01] MEDS: PROCHLORPERAZINE EDISYLATE 10 MG/2 ML VIAL IV PUSH (01:21)
[2023-05-01 06:00] VITALS: BP 168/63; PULSE 98; RESP 18; TEMP 36.8; O2SAT 97
[2023-05-01] MEDS: SODIUM CHLORIDE 0.9% IV 1,000 ML 100 ML IV CONT (06:01)
[2023-05-01] MEDS: CENTRAL LINE FLUSH 10 ML IV PUSH ×4 (06:02→13:30)
[2023-05-01 08:17] LABS: Glucose Point of Care 168 mg/dl (65-105)
[2023-05-01] MEDS: ASPIRIN 81 MG CHEWABLE TABLET PO (08:20)
[2023-05-01] MEDS: POTASSIUM CHLORIDE 10 MEQ ER TABLET PO (08:21)
[2023-05-01 08:27] VITALS: RESP 18; O2SAT 97
[2023-05-01 12:05] LABS: Glucose Point of Care 238 mg/dl (65-105)
[2023-05-01] MEDS: INSULIN ASPART (*BKC) 100 UNITS/ML SUB-Q (12:11)
[2023-05-01 14:00] VITALS: BP 149/65; PULSE 92; RESP 19; TEMP 36.9; O2SAT 96
--- NOTE | 2023-05-01 15:57 | PM.TDS ---
Transfer Discharge Sum: Prov Provider Date of admission: 04/25/23 11:02 Primary care physician: AYSE Dang Admitting clinician: Tati Beaver MD Consults: 04/23/23 20:45 Consult to Physician Routine Comment: spoke to Tori conley at off. 04.24.23 @ 1405 (,) Consulting Provider: Nadeem Robin Reason for consultation: Chemo complication Has provider been notified: Yes 04/26/23 13:22 Consult to Physician Routine Comment: Provider to see patient tomorrow. GINA RN Consulting Provider: Shahbaz Waterman call centre supervisor/MD group to consult: gastroenterology Reason for consultation: biliary duct diltation elevated LFTS Has provider been notified: Yes Attending physician on discharge: Rodrigo Shabazz Discharging clinician: Rodrigo Shabazz Receiving physician/facility: Dr. Lester at [facility] DS: Admitting Diagnosis Discharge Date 05/01/23 Admitting Diagnosis nausea, vomiting, diarrhea from chemotherapy DS: Discharge Diagnosis Discharge Diagnosis (1) Obstructive jaundice: Code(s): K83.1 - Obstruction of bile duct Status: Acute (2) Type 1 diabetes mellitus without complications: Code(s): E10.9 - Type 1 diabetes mellitus without complications Status: Acute (3) Nausea & vomiting: Qualifiers: Vomiting type: unspecified Qualified Code(s): R11.2 - Nausea with vomiting, unspecified Code(s): R11.2 - Nausea with vomiting, unspecified Status: Acute (4) Pancreatic cancer: Code(s): C25.9 - Malignant neoplasm of pancreas, unspecified Status: Acute (5) Ecchymosis of periwound skin: Code(s): R58 - Hemorrhage, not elsewhere classified Status: Acute (6) Adenocarcinoma, lung: Code(s): C34.90 - Malignant neoplasm of unspecified part of unspecified bronchus or lung Status: Acute (7) Pancreatic mass: Code(s): K86.89 - Other specified diseases of pancreas Status: Acute (8) Splenic lesion: Code(s): D73.89 - Other diseases of spleen Status: Acute (9) Pulmonary nodules/lesions, multiple: Code(s): R91.8 - Other nonspecific abnormal finding of lung field Status: Acute Plan 62-year-old female recently diagnosed with stage IV pancreatic cancer and was started on chemotherapy received it on 04/22/2023 presented with persistent nausea and vomiting with diarrhea. ?Evaluation in the ED revealed normal cbc hyponatremia hypochloremia elevated liver enzymes with AST 817 ALT of 833 with alkaline phosphatase of 359 P 80 UA negative for infection.? Admitted for IV fluids and supportive treatment.? Improving.? Continue IV fluids symptomatic treatment.? Will use port for IV hydration therapy.? Oncology has been consulted. Pancytopenia Patient is afebrile, blood pressure is stable No sign of infection or obvious bleeding ?numbers of white blood cell, hemoglobin and platelet are? trending down Likely secondary to chemotherapy Monitor CBC Elevated liver enzymes:? Right upper quadrant ultrasound with intrahepatic and extrahepatic biliary duct dilatation right and gallbladder? distention new suspicious for obstruction? by stone or mass.? consult GI. MRCP ?Ill-defined masses in the pancreas, consistent with primary adenocarcinoma and metastatic disease. 2. 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 3. Liver masses with worsening from 03/17/23, consistent with metastatic disease. Lung nodules, consistent with metastatic disease.e. ?S/P ERCP 04/30 Per GI: ?Patient with obstructive jaundice.? Imaging studies suggest pancreatic cancer.? She has metastases to the liver and lung.? Attempts to relieve this with ERCP yesterday were not fruitful.? Patient awaiting transfer to tertiary care center for flat decompression of the biliary tree.? Started on Zosyn empirically.? ?discussed with lolis and accepted.? Awaiting b
[2023-05-01] MEDS: SODIUM CHLORIDE 0.9% IV 1,000 ML 999 ML IV CONT (16:03)
[2023-05-01] MEDS: MAGNESIUM SULF 2 GM/WATER 50ML 2 GM/50 ML BAG IVPB (16:03)
[2023-05-01 17:22] LABS: Glucose Point of Care 218 mg/dl (65-105)
== END 2023-05-01 18:10 | disposition short-term general hospital (02) | DRG 445 ==
LOC: ANHED 20:13 → ANH2MED 21:43
PROVIDERS: Emergency Medicine; Family Medicine; Internal Medicine; Internal Medicine Gastroenterology; Admitting Provider Internal Medicine; Emergency Provider Emergency Medicine; PCP Physician Assistant Medical; Visit Provider Internal Medicine
PROC: 0FJB8ZZ Inspection of Hepatobiliary Duct, Via Natural or Artificial Opening Endoscopic (ICD-10-PCS; CPT 43260; principal; 2023-04-28 14:00)
DX: K83.1 Obstruction of bile duct (principal); C25.9 Malignant neoplasm of pancreas, unspecified; C78.7 Secondary malignant neoplasm of liver and intrahepatic bile duct; E87.1 Hypo-osmolality and hyponatremia; D61.818 Other pancytopenia; C78.00 Secondary malignant neoplasm of unspecified lung; T45.1X5A Adverse effect of antineoplastic and immunosuppressive drugs, initial encounter; E10.649 Type 1 diabetes mellitus with hypoglycemia without coma; K86.89 Other specified diseases of pancreas; D73.89 Other diseases of spleen; R91.8 Other nonspecific abnormal finding of lung field; E78.5 Hyperlipidemia, unspecified; E87.6 Hypokalemia; I10 Essential (primary) hypertension; E86.0 Dehydration; E87.8 Other disorders of electrolyte and fluid balance, not elsewhere classified; Z79.82 Long term (current) use of aspirin; Z79.4 Long term (current) use of insulin; Z85.3 Personal history of malignant neoplasm of breast
CPT/HCPCS: 36415; 74183; 74329; 76376; 76705; 80048; 80053; 80074; 81001; 82247; 82248; 82948; 83036; 83690; 83735; 85025; 85027; 85055; 85610; 85730; 87040; 96361; 96374; 96375; 96376; 99285; A9270; A9577; G0378; J0330; J0780; J1170; J1642; J1650; J1815; J1956; J2405; J2543; J2704; J3475; J3480; J7030; J7042; J7120; J7121

== ENCOUNTER 2024-02-17 15:11 | Emergency (ER) | payer MEDICARE, OTHER, SELFPAY ==
[2024-02-17] VITALS (27 sets, daily range): BP systolic 120–147; BP diastolic 59–69; PULSE 76–95; RESP 12–24; TEMP 36.3–36.6; O2SAT 97–100
--- NOTE | ~2024-02-17 | CT_ITS ---
EXAMINATION: CT chest abdomen pelvis w con DATE: 02/17/2024 16:54 INDICATION: right chest pain, pancreatic cancer with lung met,X1DAY . TECHNIQUE: Computed tomography (CT) of the chest, abdomen, and pelvis was performed with 100 mL Omnip aque-350 intravenous contrast. Automated exposure control and iterative reconstruction technique were employed. The dose-length product was 307.23 mGy-cm. COMPARISON: MRCP 06/27/2022; CT chest 03/19/2023; CT abdomen pelvis 02/19/2023 FINDINGS: CHEST: Thoracic aorta: No significant dilation. No dissection. Lung parenchyma and airways: Multiple pulmonary nodules. Left basilar scar. Patent airways. Subsegmen logan lingular and right middle lobe atelectasis. Thoracic inlet, axillae and chest wall: No thyroid or soft tissue mass. No axillary lymphadenopathy. Right chest implanted port terminating in the cavoatrial junction. Mediastinum: No mass or lymphadenopathy. Heart and pericardium: Mild cardiomegaly. Aortic valve calcification. Small volume pericardial fluid. Coronary artery calcifications: Absent. Pleura: Small volume right pleural fluid collection. Thoracic bones: No acute osseous finding in the chest. ABDOMEN/PELVIS: Liver: Hepatomegaly Biliary/Gallbladder: Gallbladder is normal. Biliary drains and stent in place. Pneumobilia. Pancreas: Mild atrophy. Multiple hypodensities within the body and tail the pancreas. Mild peripancre atic stranding and fluid. Spleen: Multiple hypodensities. Adrenals:No mass. Kidneys: No suspicious mass or obstructing calcification. Mild left caliectasis and pelviectasis. GI tract: Moderate distal esophageal and gastric wall edema. No small or large bowel dilation. Normal appendix. Mesentery/Peritoneum: Small volume ascites. No free air. Gastric varices. Retroperitoneum: No mass Pelvis: Mildly distended urinary bladder which is otherwise normal. Uterus not confidently visualized . Bilateral ovaries not confidently visualized. Soft Tissues: Soft tissues and body wall unremarkable. Abdominopelvic bones: No acute osseous finding in the abdomen/pelvis. IMPRESSION: Mild cardiomegaly. Small pericardial effusion. Multiple pulmonary nodules similar distribution but slightly decreased in size since the prior exam. Small right pleural effusion. Moderate esophagitis/gastritis. Hepatomegaly. Gastric varices suggesting portal hypertension. Biliary drains and biliary stent, pneumobilia suggests patency. Grossly stable pancreatic tail mass. Hypodensities in the pancreas body may represent edema/necrosis or focal areas of dilated pancreatic duct. Mild peripancreatic inflammatory change/fluid, correlate w ith pancreatic labs. Multiple stable splenic hypodensities which may represent granulomatous disease, infarct, or old site s of metastatic disease. Small volume ascites. Reviewed, dictated and finalized at location K. IMPRESSION: Mild cardiomegaly. Small pericardial effusion. Multiple pulmonary nodules similar distribution but slightly decreased in size since the prior exam. Small right pleural effusion. Moderate esophagitis/gastritis. Hepatomegaly. Gastric varices suggesting portal hypertension. Biliary drains and biliary stent, pneumobilia suggests patency. Grossly stable pancreatic tail mass. Hypodensities in the pancreas body may rep resent edema/necrosis or focal areas of dilated pancreatic duct. Mild peripancr eatic inflammatory change/fluid, correlate with pancreatic labs. Multiple stable splenic hypodensities which may represent granulomatous disease , infarct, or old sites of metastatic disease. Small volume ascites.
--- NOTE | 2024-02-17 15:13 | ECG_ITS ---
Test Date: 2024-02-17 15:20:31 Measurements Intervals [place] Rate: 81 P: 73 DC: 150 QRS: 37 QRSD: 85 T: 36 QT: 360 QTc: 420 Interpretive Statements SINUS RHYTHM MINIMAL Q WAVES- INFERIOR LEADS BASELINE ARTIFACT- I, II, III, AVR, AVL, AVF BORDERLINE ECG No previous ECG available for comparison Electronically Signed On 02-17-2024 15:20:31 CDT by Matt Saba D.O.
--- NOTE | 2024-02-17 15:36 | ED.CHESTPAIN ---
HPI - Chest Pain General Chief Complaint: Chest Pain Stated Complaint: chest pain Time Seen by Provider: 02/17/24 15:18 Source: patient and family Mode of arrival: ambulatory Limitations: no limitations History of Present Illness HPI narrative: 63 years old white female came to the emergency room complaining of right chest pain distal to the Port-A-Cath started last night while sitting watching TV, sharp, stabbing, worse laying down on either side, better sitting up. She reported intermittent coughing started this morning. She denies any fever or chills or nausea or vomiting, mid not feeling well over the last 2 days. History of pancreatic cancer with lung metastasis, last chemotherapy was 7 days ago, patient changed her pancreatic stents on February 05. Currently patient is on Xarelto. She denied trouble breathing or shortness of breath Related Data Home Medications Medication Instructions Recorded Confirmed insulin glargine 100 unit/mL (3 21 unit subcut QAM 02/17/23 02/17/24 mL) subcutaneous pen (Lantus Solostar U-100 Insulin) oxycodone 5 mg capsule 5 mg PO Q6H PRN Pain 05/30/23 02/17/24 rivaroxaban 20 mg tablet (Xarelto) 20 mg PO DAILY 02/17/24 02/17/24 Allergies Allergy/AdvReac Type Severity Reaction Status Date / Time No Known Allergies Allergy Unknown Verified 02/17/24 15:14 Review of Systems Review of Systems: All systems reviewed & are unremarkable except as noted in HPI and below PMFSH Past Medical History Medical History BMI 22.0-22.9, adult Diabetic ketoacidosis without coma associated with type 1 diabetes mellitus Encounter for other screening for malignant neoplasm of breast Herpes zoster without complication Impacted cerumen of both ears Pancreatic cancer Splenic artery aneurysm Toenail torn away Type 1 diabetes mellitus without complications Family History Family History Father Hypertension Family history of chronic obstructive pulmonary disease Family history of congestive heart failure Mother Hypertension Family history of diabetes mellitus in first degree relative Sibling Hypertension Other Diabetes mellitus Social History Social History Smoking status: Never smoker Second hand tobacco smoke exposure: Yes Alcohol intake: never Substance use: never Substance use type: does not use Lack of Transportation: No Lack of Food: Never True Current Housing: I Have Housing Concerned About Future Housing: No Difficulty Paying Gas/Electric Bills: No Difficulty Paying for Meds: No Currently Unemployed: No Education: High School Diploma/GED Difficulty w/ Childcare or Family Care: No Living arrangements: alone Occupation/Education: occupation 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 Gender identity (if verbalized by the patient): Female Spiritual care concerns: No Exam Narrative: General appearance: Well-developed, well-nourished Skin: pale Head: Normocephalic, nontraumatic Eyes: Clear conjunctiva ENT: Oropharynx normal, ears normal, nose normal Neck: Supple, nontender Chest and respiratory: Airway patent, no respiratory distress, no accessory muscle use, mild tenderness right chest distal to Port-A-Cath, no erythema, no rash, no discharge, no swelling or bruises Heart: Regular rate/rhythm Abdomen: Soft, nontender, no organomegaly, quiet bowel sounds Vascular: Normal peripheral pulses, normal capillary refill. Musculoskeletal: Normal range of motion, nontender back Neurologic: Alert and oriented ?3, ENGINEERING INSTRUCTOR is normal as tested, no gross motor deficit
[2024-02-17 15:59] LABS: Basophils Absolute Auto 0.02 K/mm3 (0.00-0.10); Basophils Percent Auto 0.5 % (0.0-1.0); Eosinophils Absolute Auto 0.03 K/mm3 (0.02-0.50); Eosinophils Percent Auto 0.7 % (1.0-6.0); Hematocrit 27.5 % (35.0-42.0); Hemoglobin 8.7 g/dL (11.7-13.8); Immature Granulocyte Absolute 0.04 K/mm3 (0.00-0.00); Lymphocytes Percent Auto 11.9 % (18.0-42.0); Mean Corpuscular HGB Conc 31.6 g/dL (32-36); Mean Corpuscular Hemoglobin 25.6 pg (27.0-31.0); Mean Corpuscular Volume 80.9 fL (78.0-102.0); Mean Platelet Volume 9.3 fl (9.2-11.8); Monocytes Percent Auto 2.4 % (2.0-11.0); Neutrophils Absolute Auto 3.51 K/mm3 (1.70-7.20); Neutrophils Percent Auto 83.5 % (50.0-70.0); Platelet Count Result 313 K/mm3 (150-420); Red Cell Distribution Width 17.6 % (11.6-14.4); White Blood Count 4.2 K/mm3 (4.8-10.8)
[2024-02-17 16:12] LABS: Partial Thromboplastin Time 27.6 Sec (23.9-30.70); Prothrombin Time 11.4 Seconds (9.50-12.1)
[2024-02-17 16:17] LABS: Troponin I 4.7 ng/L (0.00-60.4)
[2024-02-17 16:19] LABS: Alanine Aminotransferase 40 U/L (14-59); Albumin Level 3.3 g/dL (3.4-5.0); Alkaline Phosphatase 171 U/L (46-116); Anion Gap 1 mmol/L (4-12); Aspartate Amino Transferase 32 U/L (15-37); Bilirubin,Total 0.5 mg/dL (0.00-1.00); Blood Urea Nitrogen 10 mg/dL (7-18); Carbon Dioxide 30 mmol/L (21-32); Chloride 96 mmol/L (98-108); Estimated CRCL calculation 71 ml/min; Estimated Glomerular Filt Rate > 60; Glucose 196 mg/dL (70-99); NT Pro B Type Natriuretic Pept 145 pg/mL (0-125); Osmolality Calculated 268 mOsm/kg (285-295); Potassium 4.2 mmol/L (3.5-5.1); Sodium 127 mmol/L (136-145); Total Protein 6.7 g/dL (6.4-8.2)
[2024-02-17] MEDS: SODIUM CHLORIDE 0.9% IV 1,000 ML 999 ML IV CONT (17:16)
--- NOTE | 2024-02-23 16:52 | PC.NURSE ---
Final blood culture result, no growth after 5 days, no further action or treatment needed at this time.
== END 2024-02-17 18:58 | disposition home or self-care (01) ==
PROVIDERS: Emergency Provider Emergency Medicine; PCP Family Medicine
DX: R07.9 Chest pain, unspecified (principal); E87.1 Hypo-osmolality and hyponatremia; K20.90 Esophagitis, unspecified without bleeding; E10.9 Type 1 diabetes mellitus without complications; Z79.4 Long term (current) use of insulin; Z85.07 Personal history of malignant neoplasm of pancreas; Z79.01 Long term (current) use of anticoagulants; Z79.891 Long term (current) use of opiate analgesic
CPT/HCPCS: 36415; 71260; 74177; 80053; 83880; 84484; 85025; 85610; 85730; 87040; 93005; 96360; 99284; J7030; Q9967